=== PATIENT | male | born 1960 ===

== ENCOUNTER 2017-05-07 09:01 | Inpatient (IN) | payer OTHER ==
[~2017-05-07] VITALS: Ht 172.7 cm; Wt 100.0 kg
[2017-05-07 09:12] VITALS: BP 154/89; PULSE 117; RESP 22; TEMP 99.2; O2SAT 97
[2017-05-07] MEDS ORDERED: SODIUM CHLOR 0.9% 1000 ML INJ 1,000 ML IV SCH (09:15)
[2017-05-07] MEDS ORDERED: VANCOMYCIN INJ 1,000 MG in SODIUM CHLOR 0.9% 250 ML INJ 250 ML IV ONE (09:15)
[2017-05-07] MEDS ORDERED: TETANUS/DIPHTHERIA TOXOID ADULT 0.5 ML VIAL IM ONE (09:15)
[2017-05-07 09:16] VITALS: BP 154/89; PULSE 102; RESP 22; TEMP 99.2; O2SAT 97
[2017-05-07] MEDS ORDERED: KETOROLAC TROMETHAMINE 30 MG/ML (IVP) VIAL IV PUSH ONE (09:30)
[2017-05-07] MEDS ORDERED: THIAMINE INJ 100 MG in SODIUM CHLORIDE 0.9% INJ 100 ML IV ONE (09:30)
[2017-05-07 09:35] LABS: AUTOMATED NEUTROPHIL # 32.4 TH/MM3 (1.8-7.7); BASOPHIL # 0.1 TH/MM3 (0-0.2); BASOPHIL % 0.2 % (0.0-2.0); HEMATOCRIT 39.9 % (39.0-51.0); HEMOGLOBIN 13.5 GM/DL (13.0-17.0); LYMPH % 2.4 % (9.0-44.0); LYMPHOCYTE # 0.8 TH/MM3 (1.0-4.8); MEAN CELL VOLUME 90.9 FL (80.0-100.0); MEAN CORPUSCULAR HEMOGLOBIN 30.6 PG (27.0-34.0); MEAN CORPUSCULAR HGB CONC 33.7 % (32.0-36.0); MEAN PLATELET VOLUME 8.7 FL (7.0-11.0); MONO % 5.4 % (0.0-8.0); MONOCYTE # 1.9 TH/MM3 (0-0.9); PLATELET COUNT 210 TH/MM3 (150-450); RED BLOOD COUNT 4.39 MIL/MM3 (4.50-5.90); RED CELL DISTRIBUTION WIDTH 14.8 % (11.6-17.2); WHITE BLOOD COUNT 35.2 TH/MM3 (4.0-11.0)
[2017-05-07 09:52] LABS: ALBUMIN 2.9 GM/DL (3.4-5.0); AST (GOT) 90 U/L (15-37); BICARBONATE 21.6 MEQ/L (21.0-32.0); BLOOD UREA NITROGEN 16 MG/DL (7-18); CALCIUM 9.3 MG/DL (8.5-10.1); CHLORIDE 94 MEQ/L (98-107); CREATININE 1.13 MG/DL (0.60-1.30); GLOMERULAR FILTRATION RATE 67 ML/MIN (>89); GLUCOSE,RANDOM 139 MG/DL (74-106); SODIUM (NA) 128 MEQ/L (136-145)
[2017-05-07 09:53] LABS: ALT (GPT) 28 U/L (12-78)
--- NOTE | 2017-05-07 09:54 | PD ---
HPI Chief Complaint: Laceration/Skin Injury Time Seen by Provider: 09:06 Travel History International Travel<30 days: No Contact w/Intl Traveler<30days: No Traveled to known affect area: No History of Present Illness HPI 56-year-old male complains infected lesions on the left low leg. Patient states that he was in the [place] and got scratched on the skin over the past 2 days. Patient denies any fever chills. Patient states that he is up-to-date with TD booster. Patient states that he has history alcohol abuse. Last drink was yesterday. PFSH Past Medical History Medical History: Denies Significant Hx Blood Disorders: No Cardiovascular Problems: No Endocrine: No Gastrointestinal Disorders: No Genitourinary: No Immune Disorder: No Implanted Vascular Access Dvce: No Musculoskeletal: No Neurologic: No Psychiatric: No Reproductive: No Respiratory: No Tetanus Vaccination: < 5 Years Past Surgical History Surgical History: No Previous Surgery Neurologic Surgery: Yes (pt states " head sx") Social History Alcohol Use: Yes (A FEW DRINKS PER DAY) Tobacco Use: No (QUIT 06/24 3PPD) Substance Use: Yes (coccaine(DENIES)) Allergies-Medications (Allergen,Severity, Reaction): Coded Allergies: No Known Allergies (Unverified , 04/13/17) Reported Meds & Prescriptions Reported Meds & Active Scripts Active No Active Prescriptions or Reported Medications Review of Systems General / Constitutional: No: Fever Eyes: No: Visual changes HENT: No: Headaches Cardiovascular: No: Chest Pain or Discomfort Respiratory: No: Shortness of Breath Gastrointestinal: No: Abdominal Pain Genitourinary: No: Dysuria Musculoskeletal: No: Pain Skin: No Rash Neurologic: No: Weakness Psychiatric: No: Depression Endocrine: No: Polydipsia Hematologic/Lymphatic: No: Easy Bruising Physical Exam Narrative GENERAL: Well-nourished, well-developed patient. SKIN: Focused skin assessment warm/dry. HEAD: Normocephalic. EYES: No scleral icterus. No injection or drainage. NECK: Supple, trachea midline. No JVD or lymphadenopathy. CARDIOVASCULAR: Regular rate and rhythm without murmurs, gallops, or rubs. RESPIRATORY: Breath sounds equal bilaterally. No accessory muscle use. GASTROINTESTINAL: Abdomen soft, non-tender, nondistended. MUSCULOSKELETAL: No cyanosis, or edema. BACK: Nontender without obvious deformity. No CVA tenderness. Patient had multiple abrasions to bilateral lower extremity area with pustular lesions and drainage and abrasions and redness swelling to left lower leg. No induration noted. Data Data Last Documented VS Vital Signs Date Time Temp Pulse Resp B/P (MAP) Pulse Ox O2 Delivery O2 Flow Rate FiO2 05/07/17 09:16 99.2 102 22 154/89 (110) 97 Room Air Orders Orders Complete Blood Count With Diff (05/07/17 09:14) Comprehensive Metabolic Panel (05/07/17 09:14) Blood Culture (05/07/17 09:14) Iv Access Insert/Monitor (05/07/17 09:14) Sodium Chlor 0.9% 1000 Ml Inj (Ns 1000 M (05/07/17 09:15) Vancomycin Inj (Vancomycin Inj) (05/07/17 09:15) Tetanus/Diphtheria Tox Adult (Tetanus/Di (05/07/17 09:15) Ketorolac Inj (Toradol Inj) (05/07/17 09:30) Thiamine Inj (Thiamine Inj) (05/07/17 09:30) Labs Laboratory Tests Test 05/07/17 09:23 White Blood Count 35.2 TH/MM3 Red Blood Count 4.39 MIL/MM3 Hemoglobin 13.5 GM/DL Hematocrit 39.9 % Mean Corpuscular Volume 90.9 FL Mean Corpuscular Hemoglobin 30.6 PG Mean Corpuscular Hemoglobin Concent 33.7 % Red Cell Distribution Width 14.8 % Platelet Count 210 TH/MM3 Mean Platelet Volume 8.7 FL Neutrophils (%) (Auto) 92.0 % Lymphocytes (%) (Auto) 2.4 % Monocytes (%) (Auto) 5.4 % Eosinophils (%) (Auto) 0.0 % Basophils (%) (Auto) 0.2 % Neutrophils # (Auto) 32.4 TH/MM3 Lymphocytes # (Auto) 0.8 TH/MM3 Monocytes # (Auto) 1.9 TH/MM3 Eosinophils # (Auto) 0.0 TH/MM3 Basophils # (Auto) 0.1 TH/MM3 CBC Comment AUTO DIFF Differential Total Cells Counted 100 Neutrophils % (Manual) 84 % Band Neutrophils % 9 % Lymphocytes % 4 % Monocytes % 2 % Basophils % 1 % Neutrophils # (Manual) 32.7 TH/MM3 Differential Comment FINAL DIFF MANUAL Atypical Lymphocytes % Platelet Estimate NORMAL Platelet Morphology Comment NORMAL Blood Urea Nitrogen 16 MG/DL Creatinine 1.13 MG/DL Random Glucose 139 MG/DL Total Protein 8.9 GM/DL Albumin 2.9 GM/DL Calcium Level 9.3 MG/DL Alkaline Phosphatase 126 U/L Aspartate Amino Transf (AST/SGOT) 90 U/L Alanine Aminotransferase (ALT/SGPT) 28 U/L Total Bilirubin 5.3 MG/DL Sodium Level 128 MEQ/L Potassium Level 3.3 MEQ/L Chloride Level 94 MEQ/L Carbon Dioxide Level 21.6 MEQ/L Anion Gap 12 MEQ/L Estimat Glomerular Filtration Rate 67 ML/MIN MDM Medical Decision Making Medical Screen Exam Complete: Yes Emergency Medical Condition: Yes Medical Record Reviewed: Yes Interpretation(s) 10:24 AM. CBC WBC 35.2. 84 neutrophil. 9 bands. Sodium 128. Potassium 3.3. Chloride 94. GFR 67. Glucose 139. AST 19. Alkaline phosphatase 126. Differential Diagnosis Differential diagnosis including cellulitis, abscess, DVT. Narrative Course 56-year-old male with infected lesions left lower leg. History of EtOH abuse. Normal saline solution 1 25 cc an hour. Thiamine 100 mg IV. Vancomycin 1 g IV. Toradol 30 mg IV. Diagnosis Primary Impression: Left leg cellulitis Additional Impressions: History of alcohol abuse Hyponatremia Hypokalemia Scripts No Active Prescriptions or Reported Meds Fredy Waldrop MD May 07, 2017 09:54
[2017-05-07 09:55] LABS: ALKALINE PHOSPHATASE 126 U/L (45-117); TOTAL BILIRUBIN ADULT 5.3 MG/DL (0.2-1.0); TOTAL PROTEIN 8.9 GM/DL (6.4-8.2)
[2017-05-07 10:20] LABS: BANDS 9 % (0-6); BASOPHILS 1 % (0-2); LYMPHOCYTES 4 % (9-44); MONOCYTES 2 % (0-8); NEUTROPHIL # MANUAL DIFF 32.7 TH/MM3 (1.8-7.7); POLYS (SEG NEUTROPHILS) 84 % (16-70)
[2017-05-07] MEDS ORDERED: POTASSIUM CHLORIDE 20 MEQ CONTROLLED RELEASE TAB PO ONE (10:30)
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
[2017-05-07] MEDS ORDERED: LORazepam 2 MG TAB PO PRN (13:00)
[2017-05-07] MEDS ORDERED: LORazepam 1 MG TAB PO PRN (13:00)
[2017-05-07] MEDS ORDERED: Vancomycin Consult Pharmacy 1 EA OTHER SCH (13:00)
[2017-05-07] MEDS ORDERED: HALOPERIDOL LACTATE 5 MG/ML AMP IM PRN (13:00)
[2017-05-07] MEDS ORDERED: FLUMAZENIL 0.5 MG/5 ML VIAL IV PUSH PRN (13:00)
[2017-05-07] MEDS ORDERED: VANCOMYCIN INJ 2,000 MG in SODIUM CHLOR 0.9% 250 ML INJ 250 ML IV SCH ×2 (13:00→22:00)
[2017-05-07] MEDS ORDERED: LORazepam 2 MG/ML VIAL IV PUSH PRN ×4 (13:00)
[2017-05-07 13:30] VITALS: BP 117/79; PULSE 81; RESP 17; TEMP 97.6; O2SAT 100
[2017-05-07] MEDS ORDERED: SODIUM CHLOR 0.9% 1000 ML INJ 1,000 ML IV ONE (13:45)
[2017-05-07] MEDS ORDERED: ENOXAPARIN SODIUM 40 MG/0.4 ML SYRINGE SQ SCH (14:00)
[2017-05-07 16:00] VITALS: BP 117/79; PULSE 81; RESP 17; TEMP 97.6; O2SAT 100
[2017-05-07] MEDS: PIPERACIL-TAZO 3.375 GM PREMIX 50 ML IV SCH ×2 (16:02→22:25)
[2017-05-07] MEDS: SODIUM CHLOR 0.9% 1000 ML INJ 1,000 ML IV SCH ×2 (16:02→22:24)
--- NOTE | 2017-05-07 16:39 | PD.WCN.NOT ---
Wound Consult Description: Received consult for evaluation of wound management of L lower extremity from Doctor Columba Boyle MD R1 Communicated with: JAM Nguyễn and Call placed to Doctor Columba Boyle MD R1 Recommendation: Please cleanse diffuse wounds to L lower extremity with wound cleanser and pat dry. Cover draining wounds with Maxorb extra AG and ABD pad, secure with rollled gauze and tape. May leave dry partial thickness wounds open to air. Change dressing every other day or PRN if saturated or dislodged. Please consult infectious disease Doctor and recommend imaging of L lower extremity. Additional Information: Patient seen on for evaluation of wound management of L lower leg. Bilateral legs are noted open to air. L lower leg noted with non pitting edema, Skin is hot to touch . L lower extremity is noted with erythema and tenderness from the foot to the knee. Diffuse partial thickness wounds are noted to entire L leg.Blood filled blister and pustules are also seen on L lower extremity. L lower anterior garcia is noted with full thickness wound that measures ~8cm x ~ 10cm. Induration is noted to periwound from 4 to 12 o'clock. Moderate escobar/ sanguinous drainage is noted with foul odor. Wound margins are jagged, unattached and slightly macerated.Wound bed presents with ~20% pink tissue ,~20 % dark red tissue and ~60% yellow shiny tissue.Cleansed all wounds with wound cleanser and covered draining wound to L lower anterior garcia with Maxorb extra AG and covered with ABD pad. Secured dressing with rolled gauze and tape.Covered draining partial thickness wounds with an ABD pad and secured with rolled gauze and tape. Lizbeth Oliva [facility] May 07, 2017 16:39
[2017-05-07] MEDS ORDERED: IOHEXOL 350 MG/ML 10 ML VIAL (for RAD DIAG) IVCONTRAST ONE (18:52)
--- NOTE | 2017-05-07 19:13 | RADRPT ---
EXAM DATE/TIME: 05/07/2017 18:40 [facility] COMPARISON: No previous studies available for comparison. INDICATIONS : Left leg cellulitis; rule out abscess. IV CONTRAST: 75 cc Omnipaque 350 (iohexol) IV RADIATION DOSE: 7.29 CTDIvol (mGy) MEDICAL HISTORY : cocaine abuse SURGICAL HISTORY : Craniotomy. ENCOUNTER: Initial ACUITY: 3 days PAIN SCALE: 6/10 LOCATION: Left lower extremity TECHNIQUE: Volumetric scanning of the foot was performed. Using automated exposure control and adjustment of th e mA and/or kV according to patient size, radiation dose was kept as low as reasonably achievable to obtain optimal diagnostic quality images. DICOM format image data is available electronically for re view and comparison. FINDINGS: No acute bony abnormalities. Extensive subcutaneous edema in the distal leg and foot characteristic o f cellulitis. No discrete or drainable fluid collections to suggest abscess. No evidence for osteomye litis on CT. CONCLUSION: 1. Cellulitis of the distal leg and foot especially in the dorsum of the foot. No discrete abscess or CT findings of osteomyelitis. Abdiaziz Guaman MD on May 07, 2017 at 19:09 Board Certified Radiologist. This report was verified electronically.
[2017-05-07 20:00] VITALS: BP 116/69; PULSE 97; RESP 18; TEMP 99.8; O2SAT 93
[2017-05-07] MEDS ORDERED: VANCOMYCIN INJ 2,000 MG in SODIUM CHLORID 0.9% 500 ML INJ 500 ML IV SCH (22:00)
[2017-05-08 00:23] VITALS: BP 114/72; PULSE 84; RESP 18; TEMP 98.7; O2SAT 98
[2017-05-08] MEDS: PIPERACIL-TAZO 3.375 GM PREMIX 50 ML IV SCH ×4 (03:29→20:26)
[2017-05-08 06:55] LABS: AUTOMATED NEUTROPHIL # 19.4 TH/MM3 (1.8-7.7); BASOPHIL % 0.1 % (0.0-2.0); EOSINOPHIL % 0.1 % (0.0-4.0); HEMATOCRIT 35.1 % (39.0-51.0); HEMOGLOBIN 11.8 GM/DL (13.0-17.0); LYMPH % 3.9 % (9.0-44.0); LYMPHOCYTE # 0.9 TH/MM3 (1.0-4.8); MEAN CELL VOLUME 90.4 FL (80.0-100.0); MEAN CORPUSCULAR HEMOGLOBIN 30.4 PG (27.0-34.0); MEAN CORPUSCULAR HGB CONC 33.7 % (32.0-36.0); MEAN PLATELET VOLUME 8.8 FL (7.0-11.0); MONO % 7.8 % (0.0-8.0); MONOCYTE # 1.7 TH/MM3 (0-0.9); NEUT % 88.1 % (16.0-70.0); PLATELET COUNT 164 TH/MM3 (150-450); RED BLOOD COUNT 3.88 MIL/MM3 (4.50-5.90); RED CELL DISTRIBUTION WIDTH 14.7 % (11.6-17.2); WHITE BLOOD COUNT 22.1 TH/MM3 (4.0-11.0)
[2017-05-08 07:11] LABS: ALKALINE PHOSPHATASE 95 U/L (45-117); ALT (GPT) 18 U/L (12-78); AST (GOT) 53 U/L (15-37); BICARBONATE 20.3 MEQ/L (21.0-32.0); BLOOD UREA NITROGEN 37 MG/DL (7-18); CALCIUM 7.9 MG/DL (8.5-10.1); CHLORIDE 99 MEQ/L (98-107); CREATININE 3.12 MG/DL (0.60-1.30); GLOMERULAR FILTRATION RATE 21 ML/MIN (>89); GLUCOSE,RANDOM 120 MG/DL (74-106); SODIUM (NA) 131 MEQ/L (136-145); TOTAL BILIRUBIN ADULT 3.5 MG/DL (0.2-1.0); TOTAL PROTEIN 6.5 GM/DL (6.4-8.2)
[2017-05-08 08:00] VITALS: BP 101/66; PULSE 83; RESP 18; TEMP 100; O2SAT 95
[2017-05-08] MEDS ORDERED: POTASSIUM CHLORIDE 20 MEQ CONTROLLED RELEASE TAB PO ONE (08:15)
[2017-05-08] MEDS ORDERED: Vancomycin Consult Pharmacy 1 EA OTHER SCH (08:30)
[2017-05-08] MEDS: FOLIC ACID 1 MG TAB PO SCH (08:42)
[2017-05-08] MEDS: THIAMINE HCL 100 MG TAB PO SCH (08:42)
[2017-05-08] MEDS: MULTIVITAMINS/MINERALS THERAPEUTIC TAB PO SCH (08:43)
[2017-05-08] MEDS: HEPARIN SODIUM - SQ 10,000 UNITS/ML VIAL SQ SCH ×2 (08:45→20:26)
[2017-05-08] MEDS ORDERED: ACETAMINOPHEN/HYDROcodone 325 MG/5 MG TAB PO PRN (09:15)
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
--- NOTE | 2017-05-08 10:17 | RADRPT ---
EXAM DATE/TIME: 05/08/2017 09:47 [place] COMPARISON: No previous studies available for comparison. INDICATIONS : Increased BUN/Creatnine. MEDICAL HISTORY : Alcohol use. SURGICAL HISTORY : Head surgery. ENCOUNTER: Initial ACUITY: 1 day PAIN SCORE: 0/10 LOCATION: Bilateral flank MEASUREMENTS: RIGHT KIDNEY: 12.7 x 5.6 x 5.7 cm LEFT KIDNEY: 11.9 x 4.5 x 6.4 cm FINDINGS: RIGHT KIDNEY: There is increased echogenicity of the kidney. Renal cortex is normal in thickness. No hydronephrosi s, stone, or mass. LEFT KIDNEY: There is increased echogenicity of the kidney. Renal cortex is normal in thickness. No hydronephrosi s, stone, or mass. BLADDER: Within normal limits given the degree of distension. CONCLUSION: Echogenic kidneys raising the possibility of medical renal disease. Clinical correlat ion is recommended. No hydronephrosis or solid renal mass. Unremarkable urinary bladder. Be Branch MD on May 08, 2017 at 10:13 Board Certified Radiologist. This report was verified electronically.
[2017-05-08 10:25] LABS: BANDS 17 % (0-6); LYMPHOCYTES 5 % (9-44); MONOCYTES 7 % (0-8); NEUTROPHIL # MANUAL DIFF 19.4 TH/MM3 (1.8-7.7); POLYS (SEG NEUTROPHILS) 71 % (16-70)
[2017-05-08 12:00] VITALS: BP 101/64; PULSE 81; RESP 17; TEMP 98; O2SAT 97
[2017-05-08] MEDS: ACETAMINOPHEN/HYDROcodone 325 MG/10 MG TAB PO PRN ×2 (15:01→18:29)
[2017-05-08 16:00] VITALS: BP 116/70; PULSE 87; RESP 17; TEMP 99.2; O2SAT 96
[2017-05-08] MEDS: SODIUM CHLOR 0.9% 1000 ML INJ 1,000 ML IV SCH ×2 (17:24→20:26)
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
[2017-05-08] MEDS: CLINDAMYCIN INJ 600 MG in SODIUM CHLORIDE 0.9% INJ 100 ML IV SCH (18:29)
[2017-05-08 20:00] VITALS: BP 94/66; PULSE 81; RESP 22; TEMP 96.2; O2SAT 96
[2017-05-08 23:36] LABS: BICARBONATE 19.9 MEQ/L (21.0-32.0); CALCIUM 7.7 MG/DL (8.5-10.1); CREATININE 3.05 MG/DL (0.60-1.30)
[2017-05-09] VITALS: BP 91/57; PULSE 75; RESP 20; TEMP 97.4; O2SAT 96
[2017-05-09] MEDS: CLINDAMYCIN INJ 600 MG in SODIUM CHLORIDE 0.9% INJ 100 ML IV SCH ×2 (00:52→08:12)
[2017-05-09] MEDS: SODIUM CHLOR 0.9% 1000 ML INJ 1,000 ML IV SCH ×3 (00:52→20:25)
[2017-05-09 06:36] LABS: AUTOMATED NEUTROPHIL # 11.7 TH/MM3 (1.8-7.7); BASOPHIL # 0.1 TH/MM3 (0-0.2); BASOPHIL % 0.4 % (0.0-2.0); EOSINOPHIL # 0.2 TH/MM3 (0-0.4); EOSINOPHIL % 1.2 % (0.0-4.0); HEMATOCRIT 32.6 % (39.0-51.0); HEMOGLOBIN 10.8 GM/DL (13.0-17.0); LYMPHOCYTE # 0.8 TH/MM3 (1.0-4.8); MEAN CELL VOLUME 90.9 FL (80.0-100.0); MEAN CORPUSCULAR HEMOGLOBIN 30.2 PG (27.0-34.0); MEAN CORPUSCULAR HGB CONC 33.2 % (32.0-36.0); MEAN PLATELET VOLUME 8.7 FL (7.0-11.0); MONO % 8.9 % (0.0-8.0); MONOCYTE # 1.3 TH/MM3 (0-0.9); NEUT % 83.5 % (16.0-70.0); PLATELET COUNT 166 TH/MM3 (150-450); RED BLOOD COUNT 3.59 MIL/MM3 (4.50-5.90); RED CELL DISTRIBUTION WIDTH 14.7 % (11.6-17.2)
[2017-05-09 07:12] LABS: ALBUMIN 1.8 GM/DL (3.4-5.0); BICARBONATE 20.4 MEQ/L (21.0-32.0); CALCIUM 7.4 MG/DL (8.5-10.1); CALCIUM-PROTEIN CORRECTED 7.9 MG/DL (8.5-10.1); CREATININE 2.82 MG/DL (0.60-1.30); TOTAL BILIRUBIN ADULT 2.7 MG/DL (0.2-1.0); TOTAL PROTEIN 6.2 GM/DL (6.4-8.2)
[2017-05-09 08:00] VITALS: BP 99/68; PULSE 85; RESP 16; TEMP 98.6; O2SAT 97
[2017-05-09] MEDS: HEPARIN SODIUM - SQ 10,000 UNITS/ML VIAL SQ SCH ×2 (08:08→20:24)
[2017-05-09] MEDS: FOLIC ACID 1 MG TAB PO SCH (08:08)
[2017-05-09] MEDS: ACETAMINOPHEN/HYDROcodone 325 MG/10 MG TAB PO PRN ×3 (08:08→20:24)
[2017-05-09] MEDS: MULTIVITAMINS/MINERALS THERAPEUTIC TAB PO SCH (08:08)
[2017-05-09] MEDS: THIAMINE HCL 100 MG TAB PO SCH (08:08)
--- NOTE | 2017-05-09 10:09 | HHI.FPPN ---
Subjective Remarks No acute events overnight. Tmax 100.0 past 24 hours. BPs ranging 90s-100s/50- 70s. Patient states his pain overall is at a 5/10. Denies fevers/chills, CP, SOB , cough. He otherwise does not have any complaints this morning. He states his pain has improved since admission along with some ROM of the let lower extremity but is still significantly limited. (Mike Sinclair MD R2) Objective Vitals Vital Signs Date Time Temp Pulse Resp B/P (MAP) Pulse Ox O2 Delivery O2 Flow Rate FiO2 05/09/17 08:00 98.6 85 16 99/68 (78) 97 05/09/17 00:00 97.4 75 20 91/57 (68) 96 05/08/17 20:00 96.2 81 22 94/66 (75) 96 05/08/17 16:00 99.2 87 17 116/70 (85) 96 05/08/17 12:00 98.0 81 17 101/64 (76) 97 I/O 05/08/17 05/08/17 05/08/17 05/09/17 05/09/17 05/09/17 07:00 15:00 23:00 07:00 15:00 23:00 Intake Total 940 ml 50 ml 2859 ml 584 ml Output Total 300 ml 975 ml 1225 ml Balance 640 ml 50 ml 1884 ml -641 ml Intake Oral 1280 ml 480 ml IV Total 940 ml 50 ml 1579 ml 104 ml Output Urine Total 300 ml 975 ml 1225 ml # Bowel Movements 1 0 (Mike Sinclair MD R2) Result Diagram: 05/09/17 0605/09/17 06 Objective Remarks GENERAL: This is a disheveled, tired appearing male w/poor hygiene reclining in bed in no acute distress. SKIN: Tanned and dry. Numerous abrasions on the bilateral lower extremities from the knee down. On the left lower leg, there is a large 3 inch ulceration with a yellow center draining pus. There is a 1cm border of skin surrounding the ulceration that appears white. The left lower leg appears swollen and erythematous, especially at the left ankle. There is a small, firm pocket of what appears to be fluid in the anterior garcia. No palpable abscess. HEAD: Atraumatic. Normocephalic. EYES: EOMI. No scleral icterus. No injection or drainage. ENT: Moist mucous membranes. NECK: Trachea midline. Supple. CARDIOVASCULAR: Regular rate and rhythm without murmurs, gallops, or rubs. Cap refill about 2 seconds. Peripheral pulses 2+. RESPIRATORY: Coarse lung sounds on expiration. Breath sounds equal bilaterally. GASTROINTESTINAL: Abdomen soft, non-tender, nondistended. MUSCULOSKELETAL: No swelling of the right lower extremity. Dorsalis pedis pulses intact. Able to move toes of the left lower foot. Not able to flex the ankle because of pain, significant swelling and erythema of the ankle noted. NEUROLOGICAL: Awake and alert. No focal deficits, normal speech. (Mike Sinclair MD R2) A/P Assessment and Plan Patient is a 56-year-old male with a history of alcohol abuse presented with sepsis due to left lower extremity cellulitis and abscess. (Mike Sinclair MD R2) Attending Attestation Patient seen and examined. Case reviewed and discussed with the resident team. Agree with plan of care as discussed with me and documented in the resident note. he feels greatly improved and is doing well clinically. His wounds were fortunately all superficial. his renal fxn is improving. discussed with him that getting an apartment could help prevent infections as he could bathe more often that every 2-3 weeks and hopefully avoid the extensive minor trauma to his body. (Mónica Peacock MD) Problem List: (1) Left leg cellulitis ICD Codes: L03.116 - Cellulitis of left lower limb Status: Acute Plan: WBC trending down, continue to monitor - Vancomycin discontinued due to elevated Cr - ID consulted, started patient on IV Clindamycin - Zosyn discontinued - Wound cx with heavy growth staph aureus, heavy growth group A beta strep - Wound/ostomy consult - CT w/contrast of left leg demonstrating cellulitis of the distal leg and foot especially in the dorsum of the foot. No discrete abscess or CT findings of osteomyelitis. - Continue maintenance IVF - May consider orthopedic consult (2) Leukocytosis ICD Codes: D72.829 - Leukocytosis Status: Acute Plan: Continue to monitor Treatment plan as above (3) History of alcohol abuse ICD Codes: Z87.898 - Personal history of other specified conditions Status: Chronic Plan: [facility] protocol PO rally pack Symptoms stable (4) Hypokalemia ICD Codes: E87.6 - Hypokalemia Status: Acute Plan: Continue to monitor and replete orally as needed (5) Hyponatremia ICD Codes: E87.1 - Hypo-osmolality and hyponatremia Status: Resolved Plan: Resolved Continue to monitor (6) FEN Plan: Fluids: NS at maintenance rate Electrolytes: continue to monitor Nutrition: Regular diet DVT prophylaxis: Heparin 5000 units sq q12h (Mike Sinclair MD R2) Problem Qualifiers (1) Leukocytosis: Qualified Codes: D72.825 - Bandemia Mike Sinclair MD R2 May 09, 2017 10:09 Mónica Peacock MD May 09, 2017 13:21
[2017-05-09] MEDS ORDERED: POTASSIUM CHLORIDE 10 MEQ CONTROLLED RELEASE TAB PO ONE (10:15)
[2017-05-09 12:00] VITALS: BP 109/72; PULSE 83; RESP 18; TEMP 98.6; O2SAT 97
--- NOTE | 2017-05-09 13:24 | HHI.IDPN ---
Note Infectious Disease Note Patient notes sharp pain in the left leg. Awake and alert. No distress. Presented to the emergency department with lacerated wounds on his lower extremities. PAST MEDICAL HISTORY The patient denies significant history. ALLERGIES NO KNOWN DRUG ALLERGIES. ANTIBIOTICS: Clindamycin. SOCIAL HISTORY Positive alcohol use. The patient smokes one or two cigarettes a week. He denies illicit drugs. OBJECTIVE: Vital Signs Date Time Temp Pulse Resp B/P (MAP) Pulse Ox O2 Delivery O2 Flow Rate FiO2 05/09/17 12:00 98.6 83 18 109/72 (84) 97 05/09/17 08:00 98.6 85 16 99/68 (78) 97 05/09/17 00:00 97.4 75 20 91/57 (68) 96 05/08/17 20:00 96.2 81 22 94/66 (75) 96 05/08/17 16:00 99.2 87 17 116/70 (85) 96 Laboratory Tests Test 05/08/17 06:20 05/09/17 06:05 White Blood Count 22.1 TH/MM3 14.0 TH/MM3 Red Blood Count 3.88 MIL/MM3 3.59 MIL/MM3 Hemoglobin 11.8 GM/DL 10.8 GM/DL Hematocrit 35.1 % 32.6 % Mean Corpuscular Volume 90.4 FL 90.9 FL Mean Corpuscular Hemoglobin 30.4 PG 30.2 PG Mean Corpuscular Hemoglobin Concent 33.7 % 33.2 % Red Cell Distribution Width 14.7 % 14.7 % Platelet Count 164 TH/MM3 166 TH/MM3 Mean Platelet Volume 8.8 FL 8.7 FL Neutrophils (%) (Auto) 88.1 % 83.5 % Lymphocytes (%) (Auto) 3.9 % 6.0 % Monocytes (%) (Auto) 7.8 % 8.9 % Eosinophils (%) (Auto) 0.1 % 1.2 % Basophils (%) (Auto) 0.1 % 0.4 % Neutrophils # (Auto) 19.4 TH/MM3 11.7 TH/MM3 Lymphocytes # (Auto) 0.9 TH/MM3 0.8 TH/MM3 Monocytes # (Auto) 1.7 TH/MM3 1.3 TH/MM3 Eosinophils # (Auto) 0.0 TH/MM3 0.2 TH/MM3 Basophils # (Auto) 0.0 TH/MM3 0.1 TH/MM3 CBC Comment AUTO DIFF DIFF FINAL Differential Total Cells Counted 100 Neutrophils % (Manual) 71 % Band Neutrophils % 17 % Lymphocytes % 5 % Monocytes % 7 % Neutrophils # (Manual) 19.4 TH/MM3 Differential Comment FINAL DIFF MANUAL Platelet Estimate NORMAL Platelet Morphology Comment NORMAL Red Cell Morphology Comment NORMAL Laboratory Tests Test 05/08/17 06:20 05/08/17 22:10 05/09/17 06:05 Blood Urea Nitrogen 37 MG/DL 40 MG/DL 41 MG/DL Creatinine 3.12 MG/DL 3.05 MG/DL 2.82 MG/DL Random Glucose 120 MG/DL 113 MG/DL 96 MG/DL Total Protein 6.5 GM/DL 6.2 GM/DL Albumin 2.0 GM/DL 1.8 GM/DL Calcium Level 7.9 MG/DL 7.7 MG/DL 7.4 MG/DL Alkaline Phosphatase 95 U/L 267 U/L Aspartate Amino Transf (AST/SGOT) 53 U/L 38 U/L Alanine Aminotransferase (ALT/SGPT) 18 U/L 16 U/L Total Bilirubin 3.5 MG/DL 2.7 MG/DL Sodium Level 131 MEQ/L 133 MEQ/L 136 MEQ/L Potassium Level 3.4 MEQ/L 3.3 MEQ/L 3.2 MEQ/L Chloride Level 99 MEQ/L 102 MEQ/L 106 MEQ/L Carbon Dioxide Level 20.3 MEQ/L 19.9 MEQ/L 20.4 MEQ/L Anion Gap 12 MEQ/L 11 MEQ/L 10 MEQ/L Estimat Glomerular Filtration Rate 21 ML/MIN 21 ML/MIN 23 ML/MIN Protein Corrected Calcium 7.9 MG/DL Microbiology Date/Time Source Procedure Growth Status 05/07/17 09:23 Blood Peripheral Aerobic Blood Culture - Preliminary NO GROWTH IN 2 DAYS Resulted 05/07/17 09:23 Blood Peripheral Anaerobic Blood Culture - Preliminary NO GROWTH IN 2 DAYS Resulted 05/07/17 09:23 Blood Peripheral Aerobic Blood Culture - Preliminary NO GROWTH IN 2 DAYS Resulted 05/07/17 09:23 Blood Peripheral Anaerobic Blood Culture - Preliminary NO GROWTH IN 2 DAYS Resulted 05/07/17 14:10 Wound Leg Gram Stain - Final Complete 05/07/17 14:10 Wound Culture - Final Staphylococcus Aureus Group A Beta Strep Complete IMAGING: Renal Ultrasound 05/08/17 0000 Signed Impressions: Service Date/Time: Monday, May 08, 2017 09:47 - CONCLUSION: Echogenic kidneys raising the possibility of medical renal disease. Clinical correlation is recommended. No hydronephrosis or solid renal mass. Unremarkable urinary bladder. Be Branch MD Lower Extremity CT 05/07/17 0000 Signed Impressions: Service Date/Time: Sunday, May 07, 2017 18:40 - CONCLUSION: 1. Cellulitis of the distal leg and foot especially in the dorsum of the foot. No discrete abscess or CT findings of osteomyelitis. Abdiaziz Guaman MD PHYSICAL EXAMINATION GENERAL: No acute distress. HEENT: Head is atraumatic. Extraocular movements grossly intact, pupils reactive to light without icterus. Oropharynx moist mucosa without lesions. NECK: Supple without adenopathy or swelling. LUNGS: Clear to auscultation. HEART: Regular S1, S2 without murmurs, rubs or gallops. ABDOMEN: Bowel sounds present, soft, nontender. EXTREMITIES: The left leg is erythematous from above the knee down to the dorsum of the foot. There is an ulcerated lesion with shaggy appearing crater which has visible subdermal tissue and there is pale discoloration at the site of that ulceration. The entire left leg is swollen and very warm and the dorsum of the foot has 3+ edema. The patient has several shallow ulcerated clean based areas with weeping of serous fluid. The right foot has an ulcer at the dorsum. SKIN: The patient has a bronze hue to the skin. NEURO: No gross focal findings. PSYCHIATRIC: The patient is calm and cooperative. IMPRESSION 1. Severe cellulitis of the left leg with ulcerative component at the left distal tibia. Culture showing staph aureus and group A beta strep. Staph (r) to clinda. 2. Leukocytosis secondary to infection. RECOMMENDATIONS 1. Stop clindamycin. 2. Start Ancef adjusted for renal function. 3. Avoid vancomycin and other nephrotoxic medications. 4. Consider orthopedic consultation if the area of the distal tibia does not improve. The patient may need to have debridement performed by orthopedics or podiatry physician. Wan Bianchi MD May 09, 2017 13:24
[2017-05-09 16:00] VITALS: BP 109/72; PULSE 80; RESP 18; TEMP 96.4; O2SAT 98
[2017-05-09 20:22] VITALS: BP 120/74; PULSE 78; RESP 18; TEMP 97.4; O2SAT 97
[2017-05-09] MEDS: CLOTRIMAZOLE 1% CREAM 15 GM TOPICAL SCH (20:25)
[2017-05-09 23:51] VITALS: BP 127/76; PULSE 87; RESP 18; TEMP 99; O2SAT 96
[2017-05-10] MEDS: SODIUM CHLOR 0.9% 1000 ML INJ 1,000 ML IV SCH ×4 (00:31→22:13)
[2017-05-10 06:53] LABS: AUTOMATED NEUTROPHIL # 9.8 TH/MM3 (1.8-7.7); BASOPHIL # 0.1 TH/MM3 (0-0.2); BASOPHIL % 0.5 % (0.0-2.0); EOSINOPHIL # 0.2 TH/MM3 (0-0.4); EOSINOPHIL % 1.6 % (0.0-4.0); HEMATOCRIT 32.9 % (39.0-51.0); HEMOGLOBIN 10.9 GM/DL (13.0-17.0); LYMPH % 10.6 % (9.0-44.0); LYMPHOCYTE # 1.3 TH/MM3 (1.0-4.8); MEAN CELL VOLUME 90.5 FL (80.0-100.0); MEAN CORPUSCULAR HEMOGLOBIN 30.1 PG (27.0-34.0); MEAN CORPUSCULAR HGB CONC 33.2 % (32.0-36.0); MEAN PLATELET VOLUME 8.3 FL (7.0-11.0); MONO % 10.4 % (0.0-8.0); MONOCYTE # 1.3 TH/MM3 (0-0.9); NEUT % 76.9 % (16.0-70.0); PLATELET COUNT 194 TH/MM3 (150-450); RED BLOOD COUNT 3.64 MIL/MM3 (4.50-5.90); RED CELL DISTRIBUTION WIDTH 14.9 % (11.6-17.2); WHITE BLOOD COUNT 12.7 TH/MM3 (4.0-11.0)
[2017-05-10 07:20] LABS: ALBUMIN 1.8 GM/DL (3.4-5.0); ALT (GPT) 15 U/L (12-78); AST (GOT) 25 U/L (15-37); BICARBONATE 19.6 MEQ/L (21.0-32.0); BLOOD UREA NITROGEN 27 MG/DL (7-18); CALCIUM 8.1 MG/DL (8.5-10.1); CHLORIDE 106 MEQ/L (98-107); CREATININE 2.06 MG/DL (0.60-1.30); GLOMERULAR FILTRATION RATE 33 ML/MIN (>89); GLUCOSE,RANDOM 97 MG/DL (74-106); MAGNESIUM 1.8 MG/DL (1.5-2.5); SODIUM (NA) 135 MEQ/L (136-145)
[2017-05-10 07:25] LABS: ALKALINE PHOSPHATASE 101 U/L (45-117); TOTAL BILIRUBIN ADULT 2.1 MG/DL (0.2-1.0); TOTAL PROTEIN 6.4 GM/DL (6.4-8.2)
[2017-05-10 08:00] VITALS: BP_SYST 108; BP_SYST 138; BP_DIAS 61; PULSE 77; PULSE 91; RESP 17; RESP 19; TEMP 98.9; TEMP 99; O2SAT 95; O2SAT 96
[2017-05-10] MEDS: HEPARIN SODIUM - SQ 10,000 UNITS/ML VIAL SQ SCH ×2 (08:49→21:24)
[2017-05-10] MEDS: THIAMINE HCL 100 MG TAB PO SCH (08:49)
[2017-05-10] MEDS: FOLIC ACID 1 MG TAB PO SCH (08:50)
[2017-05-10] MEDS: ACETAMINOPHEN/HYDROcodone 325 MG/10 MG TAB PO PRN ×2 (08:50→14:30)
[2017-05-10] MEDS: CLOTRIMAZOLE 1% CREAM 15 GM TOPICAL SCH ×2 (08:50→21:25)
[2017-05-10] MEDS: MULTIVITAMINS/MINERALS THERAPEUTIC TAB PO SCH (08:50)
[2017-05-10] MEDS ORDERED: POTASSIUM CHLORIDE 20 MEQ CONTROLLED RELEASE TAB PO ONE ×3 (09:00→21:00)
--- NOTE | 2017-05-10 10:24 | HHI.FPPN ---
Subjective Remarks Mr Momin is improved today. His wounds are healing beautifully. He still has erythema and edema of his left ankle and has some bleeding from his wounds when he stands up to walk. He is homeless. He will be getting a check from the on the first of the month. He plans on staying in a hotel after the first. Objective Vitals Vital Signs Date Time Temp Pulse Resp B/P (MAP) Pulse Ox O2 Delivery O2 Flow Rate FiO2 05/10/17 08:00 98.9 77 17 108/61 (77) 96 05/09/17 23:51 99.0 87 18 127/76 (93) 96 05/09/17 20:22 97.4 78 18 120/74 (89) 97 05/09/17 16:00 96.4 80 18 109/72 (84) 98 05/09/17 12:00 98.6 83 18 109/72 (84) 97 I/O 05/09/17 05/09/17 05/09/17 05/10/17 05/10/17 05/10/17 07:00 15:00 23:00 07:00 15:00 23:00 Intake Total 584 ml 100 ml 1200 ml 1710 ml 120 ml Output Total 1225 ml 1500 ml 1650 ml 1800 ml Balance -641 ml -1400 ml -450 ml -90 ml 120 ml Intake Oral 480 ml 600 ml 760 ml 120 ml IV Total 104 ml 100 ml 600 ml 950 ml Output Urine Total 1225 ml 1500 ml 1650 ml 1800 ml # Voids 6 # Bowel Movements 0 0 1 Result Diagram: 05/10/1762505/10/17625 Objective Remarks GENERAL: This is a pleasant male reclining in bed in no acute distress. SKIN: Tanned and dry. Numerous abrasions on the bilateral lower extremities from the knee down much improved from admission. On the left lower leg, there was a large 3 inch ulceration with a yellow center draining pus. There was a 1cm border of skin surrounding the ulceration that appeared white. The left lower leg appears swollen and erythematous, especially at the left ankle. He still has erythema, edema and warmth. No palpable abscess. HEAD: Atraumatic. Normocephalic. EYES: EOMI. No scleral icterus. No injection or drainage. ENT: Moist mucous membranes. NECK: Trachea midline. Supple. CARDIOVASCULAR: Regular rate and rhythm without murmurs, gallops, or rubs. Cap refill about 2 seconds. Peripheral pulses 2+. RESPIRATORY: clear. Breath sounds equal bilaterally. GASTROINTESTINAL: Abdomen soft, non-tender, nondistended. MUSCULOSKELETAL: No swelling of the right lower extremity. Dorsalis pedis pulses intact. Able to move toes of the left lower foot. Not able to flex the ankle completely because of pain, significant swelling and erythema of the ankle noted. NEUROLOGICAL: Awake and alert. No focal deficits, normal speech. Urinary Catheter: No Vascular Central Line Catheter: No A/P Assessment and Plan Patient is a 56-year-old male with a history of alcohol abuse presented with sepsis due to left lower extremity cellulitis and abscess. Problem List: (1) Left leg cellulitis ICD Codes: L03.116 - Cellulitis of left lower limb Status: Acute Plan: WBC trending down, continue to monitor - Vancomycin discontinued due to elevated Cr - ID consulted, started patient on IV Clindamycin, now on ancef. will see what is recommended at D/C po because he continues to improve and may be ready for discharge tomorrow or the next day - Zosyn discontinued - Wound cx with heavy growth staph aureus not MRSA, heavy growth group A beta strep - Wound/ostomy consulted - CT w/contrast of left leg demonstrating cellulitis of the distal leg and foot especially in the dorsum of the foot. No discrete abscess or CT findings of osteomyelitis. - Continue maintenance IVF (2) Hypokalemia ICD Codes: E87.6 - Hypokalemia Status: Acute Plan: Continue to monitor and replete orally as needed. will give more today as his K is still low (3) FEN Plan: Fluids: NS at maintenance rate Electrolytes: continue to monitor Nutrition: Regular diet DVT prophylaxis: Heparin 5000 units sq q12h (4) History of alcohol abuse ICD Codes: Z87.898 - Personal history of other specified conditions Status: Chronic Plan: CIWA protocol PO rally pack Symptoms stable (5) Renal failure ICD Codes: N19 - Unspecified kidney failure Status: Acute Plan: likely from Vanc plus CT dye. will avoid all nephrotoxins. stopped vanc. on ancef now. improving daily (6) Homeless ICD Codes: Z59.0 - Homelessness Status: Chronic Plan: encouraged him to get an apartment with his [facility] check. He has likely been drinking up his money with his alcohol history Problem Qualifiers (1) Renal failure: Qualified Codes: N17.9 - Acute kidney failure, unspecified Mónica Peacock MD May 10, 2017 10:24
[2017-05-10 11:44] VITALS: BP 133/87; PULSE 76; RESP 20; TEMP 96.9; O2SAT 98
[2017-05-10 12:00] VITALS: BP 133/87; PULSE 76; RESP 20; TEMP 96.9; O2SAT 98
[2017-05-10 12:11] LABS: HEMATOCRIT 34.3 % (39.0-51.0); HEMOGLOBIN 11.4 GM/DL (13.0-17.0); MEAN CELL VOLUME 90.5 FL (80.0-100.0); MEAN CORPUSCULAR HEMOGLOBIN 30.1 PG (27.0-34.0); MEAN CORPUSCULAR HGB CONC 33.2 % (32.0-36.0); MEAN PLATELET VOLUME 8.7 FL (7.0-11.0); PLATELET COUNT 215 TH/MM3 (150-450); RED BLOOD COUNT 3.78 MIL/MM3 (4.50-5.90); WHITE BLOOD COUNT 14.4 TH/MM3 (4.0-11.0)
--- NOTE | 2017-05-10 12:37 | HHI.IDPN ---
Note Infectious Disease Note Patient notes less pain in the left leg. Awake and alert. No distress. Denies chills. Presented to the emergency department with lacerated wounds on his lower extremities. PAST MEDICAL HISTORY The patient denies significant history. ALLERGIES NO KNOWN DRUG ALLERGIES. ANTIBIOTICS: Ancef. SOCIAL HISTORY Positive alcohol use. The patient smokes one or two cigarettes a week. He denies illicit drugs. OBJECTIVE: Vital Signs Date Time Temp Pulse Resp B/P (MAP) Pulse Ox O2 Delivery O2 Flow Rate FiO2 05/10/17 11:44 96.9 76 20 133/87 (102) 98 05/10/17 08:00 98.9 77 17 108/61 (77) 96 05/09/17 23:51 99.0 87 18 127/76 (93) 96 05/09/17 20:22 97.4 78 18 120/74 (89) 97 05/09/17 16:00 96.4 80 18 109/72 (84) 98 Laboratory Tests Test 05/09/17 06:05 05/10/17 06:26 05/10/17 12:00 White Blood Count 14.0 TH/MM3 12.7 TH/MM3 14.4 TH/MM3 Red Blood Count 3.59 MIL/MM3 3.64 MIL/MM3 3.78 MIL/MM3 Hemoglobin 10.8 GM/DL 10.9 GM/DL 11.4 GM/DL Hematocrit 32.6 % 32.9 % 34.3 % Mean Corpuscular Volume 90.9 FL 90.5 FL 90.5 FL Mean Corpuscular Hemoglobin 30.2 PG 30.1 PG 30.1 PG Mean Corpuscular Hemoglobin Concent 33.2 % 33.2 % 33.2 % Red Cell Distribution Width 14.7 % 14.9 % 15.0 % Platelet Count 166 TH/MM3 194 TH/MM3 215 TH/MM3 Mean Platelet Volume 8.7 FL 8.3 FL 8.7 FL Neutrophils (%) (Auto) 83.5 % 76.9 % Lymphocytes (%) (Auto) 6.0 % 10.6 % Monocytes (%) (Auto) 8.9 % 10.4 % Eosinophils (%) (Auto) 1.2 % 1.6 % Basophils (%) (Auto) 0.4 % 0.5 % Neutrophils # (Auto) 11.7 TH/MM3 9.8 TH/MM3 Lymphocytes # (Auto) 0.8 TH/MM3 1.3 TH/MM3 Monocytes # (Auto) 1.3 TH/MM3 1.3 TH/MM3 Eosinophils # (Auto) 0.2 TH/MM3 0.2 TH/MM3 Basophils # (Auto) 0.1 TH/MM3 0.1 TH/MM3 CBC Comment DIFF FINAL DIFF FINAL Differential Comment Laboratory Tests Test 05/08/17 22:10 05/09/17 06:05 05/10/17 06:26 Blood Urea Nitrogen 40 MG/DL 41 MG/DL 27 MG/DL Creatinine 3.05 MG/DL 2.82 MG/DL 2.06 MG/DL Random Glucose 113 MG/DL 96 MG/DL 97 MG/DL Calcium Level 7.7 MG/DL 7.4 MG/DL 8.1 MG/DL Sodium Level 133 MEQ/L 136 MEQ/L 135 MEQ/L Potassium Level 3.3 MEQ/L 3.2 MEQ/L 3.1 MEQ/L Chloride Level 102 MEQ/L 106 MEQ/L 106 MEQ/L Carbon Dioxide Level 19.9 MEQ/L 20.4 MEQ/L 19.6 MEQ/L Anion Gap 11 MEQ/L 10 MEQ/L 9 MEQ/L Estimat Glomerular Filtration Rate 21 ML/MIN 23 ML/MIN 33 ML/MIN Total Protein 6.2 GM/DL 6.4 GM/DL Albumin 1.8 GM/DL 1.8 GM/DL Alkaline Phosphatase 267 U/L 101 U/L Aspartate Amino Transf (AST/SGOT) 38 U/L 25 U/L Alanine Aminotransferase (ALT/SGPT) 16 U/L 15 U/L Total Bilirubin 2.7 MG/DL 2.1 MG/DL Protein Corrected Calcium 7.9 MG/DL Magnesium Level 1.8 MG/DL Microbiology Date/Time Source Procedure Growth Status 05/07/17 14:10 Wound Leg Gram Stain - Final Complete 05/07/17 14:10 Wound Culture - Final Staphylococcus Aureus Group A Beta Strep Complete Microbiology Date/Time Source Procedure Growth Status 05/07/17 09:23 Blood Peripheral Aerobic Blood Culture - Preliminary NO GROWTH IN 2 DAYS Resulted 05/07/17 09:23 Blood Peripheral Anaerobic Blood Culture - Preliminary NO GROWTH IN 2 DAYS Resulted 05/07/17 09:23 Blood Peripheral Aerobic Blood Culture - Preliminary NO GROWTH IN 2 DAYS Resulted 05/07/17 09:23 Blood Peripheral Anaerobic Blood Culture - Preliminary NO GROWTH IN 2 DAYS Resulted 05/07/17 14:10 Wound Leg Gram Stain - Final Complete 05/07/17 14:10 Wound Culture - Final Staphylococcus Aureus Group A Beta Strep Complete IMAGING: Renal Ultrasound 05/08/17 0000 Signed Impressions: Service Date/Time: Monday, May 08, 2017 09:47 - CONCLUSION: Echogenic kidneys raising the possibility of medical renal disease. Clinical correlation is recommended. No hydronephrosis or solid renal mass. Unremarkable urinary bladder. Be Branch MD Lower Extremity CT 05/07/17 0000 Signed Impressions: Service Date/Time: Sunday, May 07, 2017 18:40 - CONCLUSION: 1. Cellulitis of the distal leg and foot especially in the dorsum of the foot. No discrete abscess or CT findings of osteomyelitis. Abdiaziz Guaman MD PHYSICAL EXAMINATION GENERAL: No acute distress. HEENT: Head is atraumatic. Extraocular movements grossly intact, pupils reactive to light without icterus. Oropharynx moist mucosa without lesions. NECK: Supple without adenopathy or swelling. LUNGS: Clear to auscultation. HEART: Regular S1, S2 without murmurs, rubs or gallops. ABDOMEN: Bowel sounds present, soft, nontender. EXTREMITIES: The left leg remains erythematous from above the knee down to the dorsum of the foot. Distal tibia ulcerated lesion with shaggy appearing crater which has visible subdermal tissue and there is pale discoloration at the site of that ulceration. The entire left leg is swollen and very warm and the dorsum of the foot has 3+ edema. The patient has several shallow ulcerated clean based areas with weeping of serous fluid. The right foot has an ulcer at the dorsum. SKIN: The patient has a bronze hue to the skin. NEURO: No gross focal findings. PSYCHIATRIC: The patient is calm and cooperative. IMPRESSION 1. Severe cellulitis of the left leg with ulcerative component at the left distal tibia. Slow to improve. Culture showing staph aureus and group A beta strep. Staph (r) to clinda. 2. Leukocytosis secondary to infection. RECOMMENDATIONS 1. Continue Ancef adjusted for renal function. 2. Avoid vancomycin and other nephrotoxic medications. 3. Consider orthopedic consultation if the area of the distal tibia does not improve. The patient may need to have debridement performed by orthopedics or podiatry physician. Wan Bianchi MD May 10, 2017 12:37
[2017-05-10 16:00] VITALS: BP 133/81; PULSE 73; RESP 19; TEMP 97.1; O2SAT 95
[2017-05-10 20:00] VITALS: BP 167/95; PULSE 76; RESP 18; TEMP 98.6; O2SAT 97
[2017-05-10] MEDS ORDERED: PHARMACY ORDERED LAB ONE (21:45)
[2017-05-10 22:47] LABS: AST (GOT) 29 U/L (15-37); BICARBONATE 24.7 MEQ/L (21.0-32.0); BLOOD UREA NITROGEN 23 MG/DL (7-18); CALCIUM 8.2 MG/DL (8.5-10.1); CHLORIDE 107 MEQ/L (98-107); GLOMERULAR FILTRATION RATE 37 ML/MIN (>89); GLUCOSE,RANDOM 105 MG/DL (74-106); SODIUM (NA) 137 MEQ/L (136-145)
[2017-05-10 22:48] LABS: ALT (GPT) 16 U/L (12-78)
[2017-05-10 22:51] LABS: ALKALINE PHOSPHATASE 141 U/L (45-117); TOTAL BILIRUBIN ADULT 1.6 MG/DL (0.2-1.0); TOTAL PROTEIN 6.8 GM/DL (6.4-8.2); VANCOMYCIN TROUGH 6.8 MCG/ML (5.0-10.0)
[2017-05-11] VITALS: BP 141/86; PULSE 74; RESP 18; TEMP 98; O2SAT 94
[2017-05-11] MEDS: SODIUM CHLOR 0.9% 1000 ML INJ 1,000 ML IV SCH ×2 (05:22→20:16)
[2017-05-11 08:00] VITALS: BP 170/94; PULSE 73; RESP 19; TEMP 97; O2SAT 95
[2017-05-11] MEDS: MULTIVITAMINS/MINERALS THERAPEUTIC TAB PO SCH (09:15)
[2017-05-11] MEDS: THIAMINE HCL 100 MG TAB PO SCH (09:15)
[2017-05-11] MEDS: FOLIC ACID 1 MG TAB PO SCH (09:15)
[2017-05-11] MEDS: ACETAMINOPHEN/HYDROcodone 325 MG/10 MG TAB PO PRN ×2 (09:16→15:27)
[2017-05-11] MEDS: HEPARIN SODIUM - SQ 10,000 UNITS/ML VIAL SQ SCH ×2 (09:16→20:16)
[2017-05-11] MEDS: CLOTRIMAZOLE 1% CREAM 15 GM TOPICAL SCH ×2 (09:18→20:18)
[2017-05-11 10:10] LABS: BICARBONATE 19.2 MEQ/L (21.0-32.0); CALCIUM 8.4 MG/DL (8.5-10.1); CREATININE 1.75 MG/DL (0.60-1.30)
--- NOTE | 2017-05-11 10:21 | HHI.FPPN ---
Subjective Remarks Afebrile overnight. No acute complaints. Adequate I/Os, had been ambulating to the restroom. (Columba Boyle MD R1) Objective Vitals Vital Signs Date Time Temp Pulse Resp B/P (MAP) Pulse Ox O2 Delivery O2 Flow Rate FiO2 05/11/17 08:00 97.0 73 19 170/94 (119) 95 05/11/17 00:00 98.0 74 18 141/86 (104) 94 05/10/17 20:00 98.6 76 18 167/95 (119) 97 05/10/17 16:00 97.1 73 19 133/81 (98) 95 05/10/17 12:00 96.9 76 20 133/87 (102) 98 05/10/17 11:44 96.9 76 20 133/87 (102) 98 I/O 05/10/17 05/10/17 05/10/17 05/11/17 05/11/17 05/11/17 07:00 15:00 23:00 07:00 15:00 23:00 Intake Total 1710 ml 240 ml 3060 ml 4817 ml Output Total 1800 ml 3000 ml 2450 ml Balance -90 ml 240 ml 60 ml 2367 ml Intake Oral 760 ml 240 ml 960 ml IV Total 950 ml 2100 ml 4817 ml Output Urine Total 1800 ml 3000 ml 2450 ml # Bowel Movements 1 1 (Columba Boyle MD R1) Result Diagram: 05/10/17 1200 05/10/17 5214 Objective Remarks GENERAL: This is a pleasant male reclining in bed in no acute distress. HEAD: Atraumatic. Normocephalic. EYES: EOMI. No scleral icterus. No injection or drainage. ENT: Moist mucous membranes. NECK: Trachea midline. Supple. CARDIOVASCULAR: Regular rate and rhythm without murmurs, gallops, or rubs. Cap refill about 2 seconds. RESPIRATORY: clear. Breath sounds equal bilaterally. GASTROINTESTINAL: Abdomen soft, non-tender, nondistended. MUSCULOSKELETAL: Improvement in swelling of the left leg, 2 open ulceration noted on the leg. Large healing ulceration on left midshin shows 1in. eschar at the center surrounded by granulation tissue. Able to move toes of the left lower foot. Not able to flex the ankle completely, slight swelling of the ankle and foot with mild erythema and warmth of the skin. SKIN: see above NEUROLOGICAL: Awake and alert. No focal deficits, normal speech. (Columba Boyle MD R1) A/P Assessment and Plan Patient is a 56-year-old male with a history of alcohol abuse presented with sepsis due to left lower extremity cellulitis and abscess. (Columba Boyle MD R1) Attending Attestation Patient seen and examined. Case reviewed and discussed with the resident team. Agree with plan of care as discussed with me and documented in the resident note. he continues to make slow but steady improvement. he was not ambulating well because of the pain and ankle infection (Mónica Peacock MD) Problem List: (1) Left leg cellulitis ICD Codes: L03.116 - Cellulitis of left lower limb Status: Acute Plan: WBC trending down, continue to monitor. Vanc d/c'd due to BRANDON. - ID consulted, IV Ancef Day #3 - Wound cx with heavy growth staph aureus not MRSA, heavy growth group A beta strep - Wound/ostomy consulted - Continue maintenance IVF - PT consulted to eval and treat (2) Hypokalemia ICD Codes: E87.6 - Hypokalemia Status: Acute Plan: Continue to monitor and replete orally as needed. will give more today as his K is still low (3) History of alcohol abuse ICD Codes: Z87.898 - Personal history of other specified conditions Status: Chronic Plan: CIWA protocol PO rally pack Symptoms stable (4) Renal failure ICD Codes: N19 - Unspecified kidney failure Status: Acute Plan: likely from Vanc plus CT dye. will avoid all nephrotoxins. stopped vanc. on ancef now. improving daily (5) Homeless ICD Codes: Z59.0 - Homelessness Status: Chronic Plan: encouraged him to get an apartment with his [facility] check. He has likely been drinking up his money with his alcohol history (6) FEN Plan: Fluids: NS at maintenance rate Electrolytes: continue to monitor Nutrition: Regular diet DVT prophylaxis: Heparin 5000 units sq q12h (Columba Boyle MD R1) Problem Qualifiers (1) Renal failure: Qualified Codes: N17.9 - Acute kidney failure, unspecified Columba Boyle MD R1 May 11, 2017 10:20 Mónica Peacock MD May 13, 2017 13:50
[2017-05-11 12:00] VITALS: BP 158/78; PULSE 64; RESP 19; TEMP 97.7; O2SAT 98
--- NOTE | 2017-05-11 15:04 | HHI.IDPN ---
Note Infectious Disease Note Patient continues to have pain in the left leg. Says that he had difficulty ambulating due to pain. Awake and alert. left foot remains markedly swollen. Denies chills. Presented to the emergency department with lacerated wounds on his lower extremities. PAST MEDICAL HISTORY The patient denies significant history. ALLERGIES NO KNOWN DRUG ALLERGIES. ANTIBIOTICS: Ancef. SOCIAL HISTORY Positive alcohol use. The patient smokes one or two cigarettes a week. He denies illicit drugs. OBJECTIVE: Vital Signs Date Time Temp Pulse Resp B/P (MAP) Pulse Ox O2 Delivery O2 Flow Rate FiO2 05/11/17 12:00 97.7 64 19 158/78 (104) 98 05/11/17 08:00 97.0 73 19 170/94 (119) 95 05/11/17 00:00 98.0 74 18 141/86 (104) 94 05/10/17 20:00 98.6 76 18 167/95 (119) 97 05/10/17 16:00 97.1 73 19 133/81 (98) 95 Laboratory Tests Test 05/10/17 06:26 05/10/17 12:00 White Blood Count 12.7 TH/MM3 14.4 TH/MM3 Red Blood Count 3.64 MIL/MM3 3.78 MIL/MM3 Hemoglobin 10.9 GM/DL 11.4 GM/DL Hematocrit 32.9 % 34.3 % Mean Corpuscular Volume 90.5 FL 90.5 FL Mean Corpuscular Hemoglobin 30.1 PG 30.1 PG Mean Corpuscular Hemoglobin Concent 33.2 % 33.2 % Red Cell Distribution Width 14.9 % 15.0 % Platelet Count 194 TH/MM3 215 TH/MM3 Mean Platelet Volume 8.3 FL 8.7 FL Neutrophils (%) (Auto) 76.9 % Lymphocytes (%) (Auto) 10.6 % Monocytes (%) (Auto) 10.4 % Eosinophils (%) (Auto) 1.6 % Basophils (%) (Auto) 0.5 % Neutrophils # (Auto) 9.8 TH/MM3 Lymphocytes # (Auto) 1.3 TH/MM3 Monocytes # (Auto) 1.3 TH/MM3 Eosinophils # (Auto) 0.2 TH/MM3 Basophils # (Auto) 0.1 TH/MM3 CBC Comment DIFF FINAL Differential Comment Laboratory Tests Test 05/10/17 06:26 05/10/17 22:15 05/11/17 09:12 Blood Urea Nitrogen 27 MG/DL 23 MG/DL 18 MG/DL Creatinine 2.06 MG/DL 1.90 MG/DL 1.75 MG/DL Random Glucose 97 MG/DL 105 MG/DL 151 MG/DL Total Protein 6.4 GM/DL 6.8 GM/DL Albumin 1.8 GM/DL 2.0 GM/DL Calcium Level 8.1 MG/DL 8.2 MG/DL 8.4 MG/DL Magnesium Level 1.8 MG/DL Alkaline Phosphatase 101 U/L 141 U/L Aspartate Amino Transf (AST/SGOT) 25 U/L 29 U/L Alanine Aminotransferase (ALT/SGPT) 15 U/L 16 U/L Total Bilirubin 2.1 MG/DL 1.6 MG/DL Sodium Level 135 MEQ/L 137 MEQ/L 137 MEQ/L Potassium Level 3.1 MEQ/L 3.4 MEQ/L 3.5 MEQ/L Chloride Level 106 MEQ/L 107 MEQ/L 108 MEQ/L Carbon Dioxide Level 19.6 MEQ/L 24.7 MEQ/L 19.2 MEQ/L Anion Gap 9 MEQ/L 5 MEQ/L 10 MEQ/L Estimat Glomerular Filtration Rate 33 ML/MIN 37 ML/MIN 40 ML/MIN Microbiology Date/Time Source Procedure Growth Status 05/07/17 09:23 Blood Peripheral Aerobic Blood Culture - Preliminary NO GROWTH IN 2 DAYS Resulted 05/07/17 09:23 Blood Peripheral Anaerobic Blood Culture - Preliminary NO GROWTH IN 2 DAYS Resulted 05/07/17 09:23 Blood Peripheral Aerobic Blood Culture - Preliminary NO GROWTH IN 2 DAYS Resulted 05/07/17 09:23 Blood Peripheral Anaerobic Blood Culture - Preliminary NO GROWTH IN 2 DAYS Resulted 05/07/17 14:10 Wound Leg Gram Stain - Final Complete 05/07/17 14:10 Wound Culture - Final Staphylococcus Aureus Group A Beta Strep Complete IMAGING: Renal Ultrasound 05/08/17 0000 Signed Impressions: Service Date/Time: Monday, May 08, 2017 09:47 - CONCLUSION: Echogenic kidneys raising the possibility of medical renal disease. Clinical correlation is recommended. No hydronephrosis or solid renal mass. Unremarkable urinary bladder. Be Branch MD Lower Extremity CT 05/07/17 0000 Signed Impressions: Service Date/Time: Sunday, May 07, 2017 18:40 - CONCLUSION: 1. Cellulitis of the distal leg and foot especially in the dorsum of the foot. No discrete abscess or CT findings of osteomyelitis. Abdiaziz Guaman MD PHYSICAL EXAMINATION GENERAL: No acute distress. HEENT: Head is atraumatic. Extraocular movements grossly intact, pupils reactive to light without icterus. Oropharynx moist mucosa without lesions. NECK: Supple without adenopathy or swelling. LUNGS: Clear to auscultation. HEART: Regular S1, S2 without murmurs, rubs or gallops. ABDOMEN: Soft, nontender. EXTREMITIES: The left leg remains erythematous from above the knee down to the dorsum of the foot. Distal tibia ulcerated lesion unchanged with purplish discoloration. large blister at ankle. The left leg is swollen and very warm and the dorsum of the foot has 3+ edema. The patient has several shallow ulcerated clean based areas with weeping of serous fluid. The right foot has an ulcer at the dorsum. SKIN: The patient has a bronze hue to the skin. NEURO: No gross focal findings. PSYCHIATRIC: The patient is calm and cooperative. IMPRESSION 1. Severe cellulitis of the left leg with ulcerative component at the left distal tibia. Not showing improvement. Culture showing staph aureus and group A beta strep. Staph (r) to clinda. ? necrosis. ? development of underlying abscess. 2. Leukocytosis. WBC remain elevated. RECOMMENDATIONS 1. Continue Ancef, increase dose to 2gm Q 12 hrs. 2. Avoid vancomycin and other nephrotoxic medications. 3. MRI of the left leg. Evaluate for abscess. 4. Orthopedic consultation. The patient may need to have debridement of the leg. D/W Dr Boyle. Wan Bianchi MD May 11, 2017 15:04
[2017-05-11 16:00] VITALS: BP 178/85; PULSE 71; RESP 19; TEMP 98.6; O2SAT 97
[2017-05-11] MEDS: ceFAZolin 2 GM PREMIX 50 ML IV SCH (18:37)
[2017-05-11] MEDS ORDERED: GADOBENATE DIM PF 529 MG/ML 20ML VIAL (for RAD MRI) IV ONE (18:51)
--- NOTE | 2017-05-11 19:23 | RADRPT ---
EXAM DATE/TIME: 05/11/2017 17:34 [facility] COMPARISON: No previous studies available for comparison. INDICATIONS : Wounds on distal left tibia from running through the [place] 2 weeks ago. CONTRAST: 20 cc Multihance (gadobenate) IV MEDICAL HISTORY : None. SURGICAL HISTORY : None. ENCOUNTER: Subsequent ACUITY: 2 weeks PAIN SCORE: 2/10 LOCATION: Left distal leg TECHNIQUE: Multiplanar multisequence MRI examination of the lower leg was performed with and without contrast. FINDINGS: There is diffuse soft tissue swelling along the mid and distal leg greatest along the medial aspect. After contrast there is patchy enhancement with multiple low signal areas of fluid noted. The largest of this is located medially and measures up to approximately 1.5 x 0.7 cm. There is normal marrow si gnal in the bony structures with no marrow edema or destructive change. The flexor and extensor muscu lature appear intact. Regions of the neurovascular bundle appear unremarkable. CONCLUSION: Diffuse tissue swelling and edema. The largest small fluid collection was located med ially and was measured at 1.5 x 0.7 cm. Infection is not excluded. There is no evidence of osteomyeli tis. Richie Kelly MD on May 11, 2017 at 19:19 Board Certified Radiologist. This report was verified electronically.
[2017-05-11 20:07] VITALS: BP 150/84; PULSE 82; RESP 20; TEMP 97.6; O2SAT 98
[2017-05-11 23:53] VITALS: BP 159/89; PULSE 77; RESP 20; TEMP 96.9; O2SAT 98
[2017-05-12] MEDS: SODIUM CHLOR 0.9% 1000 ML INJ 1,000 ML IV SCH ×4 (02:04→22:04)
[2017-05-12] MEDS: ceFAZolin 2 GM PREMIX 50 ML IV SCH ×2 (04:00→16:38)
[2017-05-12 08:00] VITALS: BP 167/88; PULSE 62; RESP 20; TEMP 98.8; O2SAT 97
[2017-05-12] MEDS: HEPARIN SODIUM - SQ 10,000 UNITS/ML VIAL SQ SCH ×2 (08:54→22:11)
[2017-05-12] MEDS: FOLIC ACID 1 MG TAB PO SCH (08:54)
[2017-05-12] MEDS: ACETAMINOPHEN/HYDROcodone 325 MG/10 MG TAB PO PRN ×3 (08:54→22:11)
[2017-05-12] MEDS: MULTIVITAMINS/MINERALS THERAPEUTIC TAB PO SCH (08:54)
[2017-05-12] MEDS: THIAMINE HCL 100 MG TAB PO SCH (08:54)
[2017-05-12] MEDS: CLOTRIMAZOLE 1% CREAM 15 GM TOPICAL SCH ×2 (08:55→22:14)
[2017-05-12 10:09] LABS: HEMATOCRIT 35.3 % (39.0-51.0); HEMOGLOBIN 11.8 GM/DL (13.0-17.0); MEAN CELL VOLUME 89.9 FL (80.0-100.0); MEAN CORPUSCULAR HEMOGLOBIN 30.1 PG (27.0-34.0); MEAN CORPUSCULAR HGB CONC 33.4 % (32.0-36.0); MEAN PLATELET VOLUME 8.2 FL (7.0-11.0); PLATELET COUNT 315 TH/MM3 (150-450); RED BLOOD COUNT 3.93 MIL/MM3 (4.50-5.90); RED CELL DISTRIBUTION WIDTH 15.3 % (11.6-17.2); WHITE BLOOD COUNT 10.4 TH/MM3 (4.0-11.0)
[2017-05-12 10:30] LABS: AST (GOT) 26 U/L (15-37); BICARBONATE 21.2 MEQ/L (21.0-32.0); BLOOD UREA NITROGEN 11 MG/DL (7-18); CALCIUM 8.4 MG/DL (8.5-10.1); CHLORIDE 104 MEQ/L (98-107); CREATININE 1.41 MG/DL (0.60-1.30); GLOMERULAR FILTRATION RATE 52 ML/MIN (>89); GLUCOSE,RANDOM 177 MG/DL (74-106); SODIUM (NA) 137 MEQ/L (136-145)
[2017-05-12 10:31] LABS: ALT (GPT) 14 U/L (12-78)
[2017-05-12 10:34] LABS: ALKALINE PHOSPHATASE 173 U/L (45-117); TOTAL PROTEIN 7.5 GM/DL (6.4-8.2)
[2017-05-12 12:00] VITALS: BP 157/87; PULSE 52; RESP 20; TEMP 96.9; O2SAT 95
[2017-05-12] MEDS ORDERED: POTASSIUM CHLORIDE 10 MEQ CONTROLLED RELEASE TAB PO ONE (12:30)
--- NOTE | 2017-05-12 13:25 | HHI.IDPN ---
Note Infectious Disease Note Patient continues to have pain in the left leg. Afebrile. Awake and alert. Denies chills. Slight decrease in swelling at the left foot. Presented to the emergency department with lacerated wounds on his lower extremities. PAST MEDICAL HISTORY The patient denies significant history. ALLERGIES NO KNOWN DRUG ALLERGIES. ANTIBIOTICS: Ancef. SOCIAL HISTORY Positive alcohol use. The patient smokes one or two cigarettes a week. He denies illicit drugs. OBJECTIVE: Laboratory Tests Test 05/12/17 09:40 White Blood Count 10.4 TH/MM3 Red Blood Count 3.93 MIL/MM3 Hemoglobin 11.8 GM/DL Hematocrit 35.3 % Mean Corpuscular Volume 89.9 FL Mean Corpuscular Hemoglobin 30.1 PG Mean Corpuscular Hemoglobin Concent 33.4 % Red Cell Distribution Width 15.3 % Platelet Count 315 TH/MM3 Mean Platelet Volume 8.2 FL Laboratory Tests Test 05/10/17 22:15 05/11/17 09:12 05/12/17 09:40 Blood Urea Nitrogen 23 MG/DL 18 MG/DL 11 MG/DL Creatinine 1.90 MG/DL 1.75 MG/DL 1.41 MG/DL Random Glucose 105 MG/DL 151 MG/DL 177 MG/DL Total Protein 6.8 GM/DL 7.5 GM/DL Albumin 2.0 GM/DL 2.0 GM/DL Calcium Level 8.2 MG/DL 8.4 MG/DL 8.4 MG/DL Alkaline Phosphatase 141 U/L 173 U/L Aspartate Amino Transf (AST/SGOT) 29 U/L 26 U/L Alanine Aminotransferase (ALT/SGPT) 16 U/L 14 U/L Total Bilirubin 1.6 MG/DL 1.0 MG/DL Sodium Level 137 MEQ/L 137 MEQ/L 137 MEQ/L Potassium Level 3.4 MEQ/L 3.5 MEQ/L 3.1 MEQ/L Chloride Level 107 MEQ/L 108 MEQ/L 104 MEQ/L Carbon Dioxide Level 24.7 MEQ/L 19.2 MEQ/L 21.2 MEQ/L Anion Gap 5 MEQ/L 10 MEQ/L 12 MEQ/L Estimat Glomerular Filtration Rate 37 ML/MIN 40 ML/MIN 52 ML/MIN Vital Signs Date Time Temp Pulse Resp B/P (MAP) Pulse Ox O2 Delivery O2 Flow Rate FiO2 05/12/17 08:00 98.8 62 20 167/88 (114) 97 05/11/17 23:53 96.9 77 20 159/89 (112) 98 05/11/17 20:07 97.6 82 20 150/84 (106) 98 05/11/17 16:00 98.6 71 19 178/85 (116) 97 Microbiology Date/Time Source Procedure Growth Status 05/07/17 09:23 Blood Peripheral Aerobic Blood Culture - Preliminary NO GROWTH IN 2 DAYS Resulted 05/07/17 09:23 Blood Peripheral Anaerobic Blood Culture - Preliminary NO GROWTH IN 2 DAYS Resulted 05/07/17 09:23 Blood Peripheral Aerobic Blood Culture - Preliminary NO GROWTH IN 2 DAYS Resulted 05/07/17 09:23 Blood Peripheral Anaerobic Blood Culture - Preliminary NO GROWTH IN 2 DAYS Resulted 05/07/17 14:10 Wound Leg Gram Stain - Final Complete 05/07/17 14:10 Wound Culture - Final Staphylococcus Aureus Group A Beta Strep Complete IMAGING: Lower Extremity MRI 05/11/17 0000 Signed Impressions: Service Date/Time: Thursday, May 11, 2017 17:34 - CONCLUSION: Diffuse tissue swelling and edema. The largest small fluid collection was located medially and was measured at 1.5 x 0.7 cm. Infection is not excluded. There is no evidence of osteomyelitis. Richie Kelly MD Renal Ultrasound 05/08/17 0000 Signed Impressions: Service Date/Time: Monday, May 08, 2017 09:47 - CONCLUSION: Echogenic kidneys raising the possibility of medical renal disease. Clinical correlation is recommended. No hydronephrosis or solid renal mass. Unremarkable urinary bladder. Be Branch MD Lower Extremity CT 05/07/17 0000 Signed Impressions: Service Date/Time: Sunday, May 07, 2017 18:40 - CONCLUSION: 1. Cellulitis of the distal leg and foot especially in the dorsum of the foot. No discrete abscess or CT findings of osteomyelitis. Abdiaziz Guaman MD PHYSICAL EXAMINATION GENERAL: No acute distress. HEENT: Head is atraumatic. Extraocular movements grossly intact, pupils reactive to light without icterus. Oropharynx moist mucosa without lesions. NECK: Supple without adenopathy or swelling. LUNGS: Clear to auscultation. HEART: Regular S1, S2 without murmurs, rubs or gallops. ABDOMEN: Soft, nontender. EXTREMITIES: The left leg remains erythematous from above the knee down to the dorsum of the foot. Distal tibia ulcerated lesion unchanged with purplish discoloration. Broken blister at ankle. The left leg is swollen and very warm and the dorsum of the foot has 2+ edema. The patient has several shallow ulcerated clean based areas with weeping of serous fluid. The right foot has an ulcer at the dorsum. SKIN: The patient has a bronze hue to the skin. NEURO: No gross focal findings. PSYCHIATRIC: The patient is calm and cooperative. IMPRESSION 1. Severe cellulitis of the left leg with ulcerative component at the left distal tibia. Not showing improvement. Culture showing staph aureus and group A beta strep. Staph (r) to clinda. MRI shows small fluid collection. No osteo. 2. Leukocytosis. WBC improved. RECOMMENDATIONS 1. Continue Ancef. 2. Avoid vancomycin and other nephrotoxic medications. 3. Monitor wound. Wan Bianchi MD May 12, 2017 13:25
--- NOTE | 2017-05-12 14:01 | PD.CONS ---
cc: Russell Logan Jr., MD HPI Service Orthopedic Surgeons Consult Requested By Primary Care Physician [facility] Admission Diagnosis left leg cellulitis. Hyponatremia. Hypokalemia. Diagnoses: Chief Complaint: LEFT lower extremity lacerations History of Present Illness 56-year-old gentleman who presented to the emergency department with lacerated wounds on his lower extremities. The patient states that he was walking [place] and was trying to get to [place] and to [place]. He walked into a barbed wire fence and got cuts and lacerations and, after that, he stumbled into some other heavy brush and eventually got to the main road area and then he was walking and was picked up by a passerby with motor vehicle and was transported to the bus station where he then was brought to the emergency department for evaluation. The patient has a history of alcoholism and he drinks heavily approximately four days a week. he reports swelling and pain in the LEFT leg with some small open wounds. At the time though there was mild drainage. he denies any fevers. Swelling increased over the next day and he developed difficulty weightbearing. He reports LEFT leg pain 3 out of 5, exacerbated by weightbearing, pain is nonradiating and sharp, relieved at rest, denies any fevers, denies any some purulent drainage. He denies chills, nausea, vomiting, shortness of breath. Culture from the wound has staph aureus and group A beta strep. PAST MEDICAL HISTORY The patient denies significant history. ALLERGIES NO KNOWN DRUG ALLERGIES. MEDICATIONS 1. Piperacillin/tazobactam. 2. Multivitamin 3. Thiamine, 4. Folate. 5. Inchelium 10. SOCIAL HISTORY Positive alcohol use. The patient smokes one or two cigarettes a week. He denies illicit drugs. FAMILY HISTORY Unknown. The patient was adopted. He is by descent. REVIEW OF SYSTEMS Negative except for pain in the left leg Past Family Social History Allergies: Coded Allergies: No Known Allergies (Unverified , 04/13/17) Active Ordered Medications Current Medications Medications (Trade) Dose Ordered Sig/Jameson Route Start Time Stop Time Status Last Admin (Folate) 1 mg DAILY PO 05/08/17 09:00 05/13/17 08:59 05/12/17 08:54 (Vitamin B1) 100 mg DAILY PO 05/08/17 09:00 05/12/17 08:54 (Theragran M Tab) 1 tab DAILY PO 05/08/17 09:00 05/13/17 08:59 05/12/17 08:54 (Haldol Inj) 2 mg Q15M PRN IM 05/07/17 13:00 (Romazicon Inj) 0.2 mg Q1M PRN IV PUSH 05/07/17 13:00 (Ativan) 1 mg Q4H PRN PO 05/07/17 13:00 (Ativan Inj) 1 mg Q4H PRN IV PUSH 05/07/17 13:00 (Ativan) 2 mg Q2H PRN PO 05/07/17 13:00 (Ativan Inj) 2 mg Q2H PRN IV PUSH 05/07/17 13:00 (Ativan Inj) 2 mg Q1H PRN IV PUSH 05/07/17 13:00 (Ativan Inj) 2 mg Q15M PRN IV PUSH 05/07/17 13:00 Sodium Chloride 1,000 ml @ 150 mls/hr Q6H40M IV 05/07/17 14:00 05/12/17 02:04 (Heparin Inj) 5,000 units Q12HR SQ 05/08/17 09:00 05/12/17 08:54 (Inchelium 5-325 Mg) 1 tab Q6H PRN PO 05/08/17 09:15 05/10/17 21:32 (Inchelium 10-325 Mg) 1 tab Q6H PRN PO 05/08/17 09:15 05/12/17 13:38 (Lotrimin 1% Cream) 1 applic Q12HR TOPICAL 05/09/17 13:30 05/12/17 08:55 Cefazolin Sodium/ Dextrose 50 ml @ 100 mls/hr Q12H IV 05/11/17 16:00 05/12/17 04:00 Reported Meds & Active Scripts Active No Active Prescriptions or Reported Medications Physical Exam Vital Signs Vital Signs Date Time Temp Pulse Resp B/P (MAP) Pulse Ox O2 Delivery O2 Flow Rate FiO2 05/12/17 12:00 96.9 52 20 157/87 (110) 95 05/12/17 08:00 98.8 62 20 167/88 (114) 97 05/11/17 23:53 96.9 77 20 159/89 (112) 98 05/11/17 20:07 97.6 82 20 150/84 (106) 98 05/11/17 16:00 98.6 71 19 178/85 (116) 97 Physical Exam Alert awake and oriented x 3. No acute distress. Head: NC/AT Neck: No pain with any range of motion and neck. Pulmonary: Normal respiratory effort. bilateral upper extremity: Intact sensation distally in median, ulnar, and radial nerve. Intact motor in anterior interosseous, posterior interosseous, and ulnar nerve. 2+ radial artery pulses. Good cap refill. RIGHT lower extremity: Neurovascularly intact, +EHL/FHL, + PT/DP pulses. Supple compartments. Negative Homans sign. LEFT lower extremity: Neurovascularly intact, +EHL/FHL, dressing removed. Some multiple small wounds, laceration and scratches and scabs along the distal leg. There is no purulent drainage, erythema, no induration, + PT/DP pulses. Supple compartments. Negative Homans sign. Laboratory Laboratory Tests Test 05/11/17 16:04 05/12/17 09:40 Urine Eosinophils NONE SEEN White Blood Count 10.4 Red Blood Count 3.93 Hemoglobin 11.8 Hematocrit 35.3 Mean Corpuscular Volume 89.9 Mean Corpuscular Hemoglobin 30.1 Mean Corpuscular Hemoglobin Concent 33.4 Red Cell Distribution Width 15.3 Platelet Count 315 Mean Platelet Volume 8.2 Blood Urea Nitrogen 11 Creatinine 1.41 Random Glucose 177 Total Protein 7.5 Albumin 2.0 Calcium Level 8.4 Alkaline Phosphatase 173 Aspartate Amino Transf (AST/SGOT) 26 Alanine Aminotransferase (ALT/SGPT) 14 Total Bilirubin 1.0 Sodium Level 137 Potassium Level 3.1 Chloride Level 104 Carbon Dioxide Level 21.2 Anion Gap 12 Estimat Glomerular Filtration Rate 52 Date/Time Source Procedure Growth Status 05/07/17 09:23 Blood Peripheral Aerobic Blood Culture - Final NO GROWTH IN 5 DAYS Complete 05/07/17 09:23 Blood Peripheral Anaerobic Blood Culture - Final NO GROWTH IN 5 DAYS Complete 05/07/17 14:10 Wound Leg Gram Stain - Final Complete 05/07/17 14:10 Wound Culture - Final Staphylococcus Aureus Group A Beta Strep Complete Result Diagram: 05/12/17 0940 05/12/17 0940 Imaging Last 72 hours Impressions Lower Extremity MRI 05/11/17 0000 Signed Impressions: Service Date/Time: Thursday, May 11, 2017 17:34 - CONCLUSION: Diffuse tissue swelling and edema. The largest small fluid collection was located medially and was measured at 1.5 x 0.7 cm. Infection is not excluded. There is no evidence of osteomyelitis. Richie Kelly MD Assessment & Plan Assessment and Plan 56-year-old male sustained multiple lacerations to LEFT leg from injuries sustained while running in the [employer]. On exam, he is grossly neurovascularly intact with generalized diffuse swelling from the mid tibia distally. His wounds appear healthy and are healing well with mild surrounding erythema and generalized cellulitis in the posterior aspect of the leg. His compartments are soft. There is no fluctuance or induration or any signs of deep infection. There is moderate swelling of the foot making weightbearing somewhat difficult. There is no need for any surgical intervention at this time. I recommend continued wound care and medical treatment with IV antibiotics. WBAT. Follow- up with primary care in 2 weeks Russell Logan Jr., MD May 12, 2017 14:01
[2017-05-12] MEDS ORDERED: cloNIDine HCL 0.1 MG TAB PO PRN (14:45)
--- NOTE | 2017-05-12 14:52 | HHI.FPPN ---
Subjective Remarks Patient states he is doing better today than yesterday; left leg is less painful. Afebrile overnight. Blood pressure is elevated at 150s-170s/80s. Patient states that he is hardly ambulating at all. (Columba Boyle MD R1) Objective Vitals Vital Signs Date Time Temp Pulse Resp B/P (MAP) Pulse Ox O2 Delivery O2 Flow Rate FiO2 05/12/17 12:00 96.9 52 20 157/87 (110) 95 05/12/17 08:00 98.8 62 20 167/88 (114) 97 05/11/17 23:53 96.9 77 20 159/89 (112) 98 05/11/17 20:07 97.6 82 20 150/84 (106) 98 05/11/17 16:00 98.6 71 19 178/85 (116) 97 I/O 05/11/17 05/11/17 05/11/17 05/12/17 05/12/17 05/12/17 07:00 15:00 23:00 07:00 15:00 23:00 Intake Total 4817 ml 120 ml 2510 ml 2200 ml 120 ml Output Total 2450 ml 1000 ml 2400 ml Balance 2367 ml 120 ml 1510 ml -200 ml 120 ml Intake Oral 120 ml 960 ml 1200 ml 120 ml IV Total 4817 ml 1550 ml 1000 ml Output Urine Total 2450 ml 1000 ml 2400 ml # Bowel Movements 0 2 (Columba Boyle MD R1) Result Diagram: 05/12/1740 05/12/17 0940 Objective Remarks GENERAL: This is a pleasant male reclining in bed in no acute distress. HEAD: Atraumatic. Normocephalic. EYES: EOMI. No scleral icterus. No injection or drainage. ENT: Moist mucous membranes. NECK: Trachea midline. Supple. CARDIOVASCULAR: Regular rate and rhythm without murmurs, gallops, or rubs. RESPIRATORY: clear. Breath sounds equal bilaterally. GASTROINTESTINAL: Abdomen soft, non-tender, nondistended. MUSCULOSKELETAL: Improvement in swelling of the left leg, 2 ulcerations noted on the leg. Large healing lesion on left midshin shows 1in. eschar at the center surrounded by granulation tissue. 3 cm healing lesion on the distal medial aspect of the left lower leg evident with granulation tissue and minimal drainage of serosanguineous fluid. Able to move toes of the left lower foot. Not able to flex the ankle completely, slight swelling of the ankle and foot with mild erythema and warmth of the skin. SKIN: see above NEUROLOGICAL: Awake and alert. No focal deficits, normal speech. (Columba Boyle MD R1) A/P Assessment and Plan Patient is a 56-year-old male with a history of alcohol abuse presented with sepsis due to left lower extremity cellulitis and abscess. Receiving antibiotics , IV fluids, heparin for DVT prophylaxis, [place] for pain control. ID and orthopedic surgery have been consulted. Left leg appears to be nonoperable. We' ll continue treatment and plan for discharge. Discharge Planning Patient does not appear to have benefits with the [facility], Patient has benefits for a SNF. CN also contacted VA contact to inquire about VA benefits since it is unclear whether or not steve has benefits. HHC does not appear to be a viable option since patient is homeless. Will plan for D/C pending clinical improvement and improved mobility. (Columba Boyle MD R1) Attending Attestation Patient seen and examined. Case reviewed and discussed with the resident team. Agree with plan of care as discussed with me and documented in the resident note. hopefully he can get into a SNF. He has expressed a preference for staying in a hotel at D/C. If unable to ambulate well, a SNF would be best. Wound care clinic could be considered as he would probably make weekly visits which would be easier on him, since his insurance will not cover home visits to a hotel. His wounds have great granulation tissue at this point and need good nonstick dressings. can see when ID feels he can go on po meds as he does have some remaining cellulitis of the foot and ankle (Mónica Peacock MD) Problem List: (1) Left leg cellulitis ICD Codes: L03.116 - Cellulitis of left lower limb Status: Acute Plan: WBC trending down, continue to monitor. Vanc d/c'd due to BRANDON. - ID consulted - IV Ancef Day #4 - Wound cx with heavy growth staph aureus not MRSA, heavy growth group A beta strep - Continue maintenance IVF - PT consulted to perform activity therapy 3x/week (2) Hypokalemia ICD Codes: E87.6 - Hypokalemia Status: Acute Plan: Continue to monitor and replete orally as needed. (3) History of alcohol abuse ICD Codes: Z87.898 - Personal history of other specified conditions Status: Chronic Plan: CIWA protocol PO rally pack Symptoms stable (4) Renal failure ICD Codes: N19 - Unspecified kidney failure Status: Acute Plan: S/p Vanc plus CT dye. - will avoid all nephrotoxins. -stopped vanc. on ancef now. - improving daily, BUN/Cr =05/12.41 . (5) Homeless ICD Codes: Z59.0 - Homelessness Status: Chronic Plan: Has [employer] insurance, is a [facility] patient. Likely no C. Receives a [facility] check. Consulted CM, in communication to formulate outpatient plan. (6) FEN Plan: Fluids: NS at maintenance rate Electrolytes: continue to monitor w/daily BMP, supplement as needed Nutrition: Regular diet DVT prophylaxis: Heparin 5000 units sq q12h (Columba Boyle MD R1) Problem Qualifiers (1) Renal failure: Qualified Codes: N17.9 - Acute kidney failure, unspecified Columba Boyle MD R1 May 12, 2017 14:52 Mónica Peacock MD May 13, 2017 13:55
[2017-05-12 16:00] VITALS: BP 164/94; PULSE 62; RESP 19; TEMP 97.2; O2SAT 98
[2017-05-12 20:26] VITALS: BP 160/92; PULSE 89; RESP 20; TEMP 97.8; O2SAT 98
[2017-05-13] VITALS (7 sets, daily range): BP systolic 125–169; BP diastolic 80–97; PULSE 63–68; RESP 17–19; TEMP 97.2–97.9; O2SAT 96–98
[2017-05-13] MEDS: ceFAZolin 2 GM PREMIX 50 ML IV SCH ×2 (04:11→16:05)
[2017-05-13] MEDS: SODIUM CHLOR 0.9% 1000 ML INJ 1,000 ML IV SCH (04:44)
[2017-05-13] MEDS: ACETAMINOPHEN/HYDROcodone 325 MG/10 MG TAB PO PRN ×3 (06:15→18:32)
[2017-05-13] MEDS: HEPARIN SODIUM - SQ 10,000 UNITS/ML VIAL SQ SCH ×2 (08:06→20:49)
[2017-05-13] MEDS: THIAMINE HCL 100 MG TAB PO SCH (08:06)
[2017-05-13] MEDS: CLOTRIMAZOLE 1% CREAM 15 GM TOPICAL SCH (08:07)
--- NOTE | 2017-05-13 09:47 | HHI.FPPN ---
Subjective Remarks Mr Momin's wounds continue to heal. He is able to ambulate better and has less pain. We discussed his going to a SNF to continue wound healing and he is fine with that. He was told that his kidneys are better but not perfect. He still needs daily K but should be improving over time where in the week or so he will not need K supplements as long as things continue to improve. Unsure whether he still needs ancef vs another abx. Can ask ID to clarify as he hopefully can go to SNF soon. Objective Vitals Vital Signs Date Time Temp Pulse Resp B/P (MAP) Pulse Ox O2 Delivery O2 Flow Rate FiO2 05/13/17 07:50 97.7 68 19 125/80 (95) 97 05/13/17 00:07 97.6 64 18 159/86 (110) 96 05/12/17 20:26 97.8 89 20 160/92 (114) 98 05/12/17 16:00 97.2 62 19 164/94 (117) 98 05/12/17 12:00 96.9 52 20 157/87 (110) 95 I/O 05/12/17 05/12/17 05/12/17 05/13/17 05/13/17 05/13/17 07:00 15:00 23:00 07:00 15:00 23:00 Intake Total 2200 ml 1120 ml 1200 ml 810 ml Output Total 2400 ml 3500 ml 1800 ml Balance -200 ml 1120 ml -2300 ml -990 ml Intake Oral 1200 ml 120 ml 1200 ml 760 ml IV Total 1000 ml 1000 ml 50 ml Output Urine Total 2400 ml 3500 ml 1800 ml # Bowel Movements 2 0 1 Result Diagram: 05/12/1793905/12/17939 Objective Remarks GENERAL: This is a pleasant male reclining in bed in no acute distress. HEAD: Atraumatic. Normocephalic. EYES: EOMI. No scleral icterus. No injection or drainage. ENT: Moist mucous membranes. NECK: Trachea midline. Supple. CARDIOVASCULAR: Regular rate and rhythm without murmurs, gallops, or rubs. RESPIRATORY: clear. Breath sounds equal bilaterally. GASTROINTESTINAL: Abdomen soft, non-tender, nondistended. MUSCULOSKELETAL: Improvement in swelling of the left leg, 2 ulcerations noted on the leg. Large healing lesion on left midshin shows 1in. eschar at the center surrounded by granulation tissue. 3 cm healing lesion on the distal medial aspect of the left lower leg evident with granulation tissue and minimal drainage of serosanguineous fluid. Able to move toes of the left lower foot. Not able to flex the ankle completely, slight swelling of the ankle and foot with mild erythema and warmth of the skin. Improved ability to ambulate and move his foot and ankle. SKIN: see above NEUROLOGICAL: Awake and alert. No focal deficits, normal speech. Urinary Catheter: No Vascular Central Line Catheter: No A/P Assessment and Plan Patient is a 56-year-old male with a history of alcohol abuse presented with sepsis due to left lower extremity cellulitis and abscess. Receiving antibiotics , IV fluids, heparin for DVT prophylaxis, [place] for pain control. ID and orthopedic surgery have been consulted. Left leg appears to be nonoperable. We' ll continue treatment and plan for discharge. Discharge Planning Patient does not appear to have benefits with the [facility], Patient has benefits for a SNF. CN also contacted VA contact to inquire about VA benefits since it is unclear whether or not patient has benefits. [facility] does not appear to be a viable option since patient is homeless. Will plan for D/C pending clinical improvement and improved mobility. Problem List: (1) Left leg cellulitis ICD Codes: L03.116 - Cellulitis of left lower limb Status: Acute Plan: WBC trending down, continue to monitor. Vanc d/c'd due to BRANDON. - ID consulted - IV Ancef Day #5 - Wound cx with heavy growth staph aureus not MRSA, heavy growth group A beta strep - Continue maintenance IVF, can consider D/C ing as he is taking good po and his kidneys improved - PT consulted to perform activity therapy 3x/week (2) Hypokalemia ICD Codes: E87.6 - Hypokalemia Status: Acute Plan: Continue to monitor and replete orally as needed. needs this probably because his kidneys are not completely recovered from his BRANDON. (3) History of alcohol abuse ICD Codes: Z87.898 - Personal history of other specified conditions Status: Chronic Plan: CIWA protocol PO rally pack Symptoms stable (4) Renal failure ICD Codes: N19 - Unspecified kidney failure Status: Acute Plan: S/p Vanc plus CT dye. - will avoid all nephrotoxins. -stopped vanc. on ancef now. - improving daily, BUN/Cr =05/12.41 . (5) Homeless ICD Codes: Z59.0 - Homelessness Status: Chronic Plan: Has insurance, is a [facility] patient. Likely no HHC. Receives a [facility] check. Consulted CM, in communication to formulate outpatient plan. (6) FEN Plan: Fluids: NS at maintenance rate Electrolytes: continue to monitor w/daily BMP, supplement as needed Nutrition: Regular diet DVT prophylaxis: Heparin 5000 units sq q12h Problem Qualifiers (1) Renal failure: Qualified Codes: N17.9 - Acute kidney failure, unspecified Mónica Peacock MD May 13, 2017 09:47
[2017-05-13] MEDS: POTASSIUM CHLORIDE 20 MEQ CONTROLLED RELEASE TAB PO SCH ×2 (10:31→20:49)
[2017-05-13 11:17] LABS: ALBUMIN 2.1 GM/DL (3.4-5.0); AST (GOT) 31 U/L (15-37); BICARBONATE 23.1 MEQ/L (21.0-32.0); BLOOD UREA NITROGEN 10 MG/DL (7-18); CALCIUM 8.4 MG/DL (8.5-10.1); CHLORIDE 101 MEQ/L (98-107); CREATININE 1.31 MG/DL (0.60-1.30); GLOMERULAR FILTRATION RATE 56 ML/MIN (>89); GLUCOSE,RANDOM 86 MG/DL (74-106); SODIUM (NA) 136 MEQ/L (136-145)
[2017-05-13 11:20] LABS: ALKALINE PHOSPHATASE 182 U/L (45-117); ALT (GPT) 13 U/L (12-78); TOTAL BILIRUBIN ADULT 0.9 MG/DL (0.2-1.0); TOTAL PROTEIN 7.9 GM/DL (6.4-8.2)
--- NOTE | 2017-05-13 15:57 | HHI.IDPN ---
Note Infectious Disease Note Patient continues to have pain in the left leg 4-11/18. Afebrile. Awake and alert. Denies chills. Presented to the emergency department with lacerated wounds on his lower extremities. PAST MEDICAL HISTORY The patient denies significant history. ALLERGIES NO KNOWN DRUG ALLERGIES. ANTIBIOTICS: Ancef. SOCIAL HISTORY Positive alcohol use. The patient smokes one or two cigarettes a week. He denies illicit drugs. OBJECTIVE: Vital Signs Date Time Temp Pulse Resp B/P (MAP) Pulse Ox O2 Delivery O2 Flow Rate FiO2 05/13/17 12:00 97.6 68 17 143/90 (107) 97 05/13/17 07:50 97.7 68 19 125/80 (95) 97 05/13/17 00:07 97.6 64 18 159/86 (110) 96 05/12/17 20:26 97.8 89 20 160/92 (114) 98 05/12/17 16:00 97.2 62 19 164/94 (117) 98 Laboratory Tests Test 05/12/17 09:40 White Blood Count 10.4 TH/MM3 Red Blood Count 3.93 MIL/MM3 Hemoglobin 11.8 GM/DL Hematocrit 35.3 % Mean Corpuscular Volume 89.9 FL Mean Corpuscular Hemoglobin 30.1 PG Mean Corpuscular Hemoglobin Concent 33.4 % Red Cell Distribution Width 15.3 % Platelet Count 315 TH/MM3 Mean Platelet Volume 8.2 FL Laboratory Tests Test 05/12/17 09:40 05/13/17 07:47 Blood Urea Nitrogen 11 MG/DL 10 MG/DL Creatinine 1.41 MG/DL 1.31 MG/DL Random Glucose 177 MG/DL 86 MG/DL Total Protein 7.5 GM/DL 7.9 GM/DL Albumin 2.0 GM/DL 2.1 GM/DL Calcium Level 8.4 MG/DL 8.4 MG/DL Alkaline Phosphatase 173 U/L 182 U/L Aspartate Amino Transf (AST/SGOT) 26 U/L 31 U/L Alanine Aminotransferase (ALT/SGPT) 14 U/L 13 U/L Total Bilirubin 1.0 MG/DL 0.9 MG/DL Sodium Level 137 MEQ/L 136 MEQ/L Potassium Level 3.1 MEQ/L 3.1 MEQ/L Chloride Level 104 MEQ/L 101 MEQ/L Carbon Dioxide Level 21.2 MEQ/L 23.1 MEQ/L Anion Gap 12 MEQ/L 12 MEQ/L Estimat Glomerular Filtration Rate 52 ML/MIN 56 ML/MIN Microbiology Date/Time Source Procedure Growth Status 05/07/17 09:23 Blood Peripheral Aerobic Blood Culture - Preliminary NO GROWTH IN 2 DAYS Resulted 05/07/17 09:23 Blood Peripheral Anaerobic Blood Culture - Preliminary NO GROWTH IN 2 DAYS Resulted 05/07/17 09:23 Blood Peripheral Aerobic Blood Culture - Preliminary NO GROWTH IN 2 DAYS Resulted 05/07/17 09:23 Blood Peripheral Anaerobic Blood Culture - Preliminary NO GROWTH IN 2 DAYS Resulted 05/07/17 14:10 Wound Leg Gram Stain - Final Complete 05/07/17 14:10 Wound Culture - Final Staphylococcus Aureus Group A Beta Strep Complete IMAGING: Lower Extremity MRI 05/11/17 0000 Signed Impressions: Service Date/Time: Thursday, May 11, 2017 17:34 - CONCLUSION: Diffuse tissue swelling and edema. The largest small fluid collection was located medially and was measured at 1.5 x 0.7 cm. Infection is not excluded. There is no evidence of osteomyelitis. Richie Kelly MD Renal Ultrasound 05/08/17 0000 Signed Impressions: Service Date/Time: Monday, May 08, 2017 09:47 - CONCLUSION: Echogenic kidneys raising the possibility of medical renal disease. Clinical correlation is recommended. No hydronephrosis or solid renal mass. Unremarkable urinary bladder. Be Branch MD Lower Extremity CT 05/07/17 0000 Signed Impressions: Service Date/Time: Sunday, May 07, 2017 18:40 - CONCLUSION: 1. Cellulitis of the distal leg and foot especially in the dorsum of the foot. No discrete abscess or CT findings of osteomyelitis. Abdiaziz Guaman MD PHYSICAL EXAMINATION GENERAL: No acute distress. HEENT: No icterus. Oropharynx moist mucosa without lesions. NECK: Supple without adenopathy or swelling. LUNGS: Clear to auscultation. HEART: Regular S1, S2 without murmurs, rubs or gallops. EXTREMITIES: The left leg is less erythematous Distal tibia ulcerated lesion unchanged with purplish discoloration. Broken blister at ankle. The left leg is swollen and very warm and the dorsum of the foot has 2+ edema. SKIN: The patient has a bronze hue to the skin. NEURO: No gross focal findings. PSYCHIATRIC: The patient is calm and cooperative. IMPRESSION 1. Severe cellulitis of the left leg with ulcerative component at the left distal tibia. Showing some improvement. Culture showing staph aureus and group A beta strep. Staph (r) to clinda. MRI shows small fluid collection. No osteo. 2. Leukocytosis. WBC improved. RECOMMENDATIONS 1. Change Ancef to Ceftriaxone for once daily treatment. 2. Avoid vancomycin and other nephrotoxic medications. 3. Okay to do outpatient treatment. Orders written for infusion clinic. [facility]. Wan Bianchi MD May 13, 2017 15:57
--- NOTE | 2017-05-13 16:00 | HHI.FF ---
Infusion Therapy Location of Infusion Therapy: Ambulatory Infusion Therapy Order Patient Information Patient Weight 100 kg Diagnosis: (1) Left leg cellulitis Coded Allergies: No Known Allergies (Unverified , 04/13/17) Administer Medication Ceftriaxone 1 gram IV q 24 hours Stop Treatment: May 20, 2017 Additional Information Venous access: Other Additional Instructions [x] Peripheral flush and dressing changes per protocol [x] Implanted port and central captain/airline pilot: * Implanted port: 10 ml Normal Saline followed by 5 ml Heparin 100 units/ml Heparin flush after each use and monthly to maintain. [] May leave port accessed during therapy. [] May leave peripheral site accessed for duration of therapy. [x] If patient has SOB or respiratory distress, check oxygen saturation. If less than 90% or clinical signs of respiratory distress, administer oxygen at 2 L/min. via nasal cannula and notify physician. [x] Anaphylaxis/Reaction orders: * Stop infusion. * Keep IV line open with saline flush. * Notify physician. * Monitor vital signs every 15 minutes until symptoms resolve. * Check Oxygen saturation; Oxygen at 2 L/min. via nasal cannula if less than 90% or clinical signs of respiratory distress. * Administer diphenhydramine (Benadryl) 25 mg IV STAT, (unless patient has received as pre-med). May repeat once, if necessary. * Solu-Cortef 250 mg IVP over 30-60 seconds, use 100 mg vials for each dissolution. * Epinephrine (1mg/1 ml) 0.3 mg subcutaneously or IVP now with any signs of respiratory distress. * Check with physician for new additional pre-med orders if patient is re- challenged or re-treated. [x] May remove PICC line when treatment complete, after confirming with Physician. [x] If the patient is admitted to the hospital, the ED, or transferred via EVAC , complete transfer form including medication reconciliation order sheet. Laboratory Tests Weekly Labs: [facility] Additional Information Follow up with [place] clinic. Wan Bianchi MD May 13, 2017 16:00
--- NOTE | 2017-05-13 16:00 | HHI.FF ---
Infusion Therapy Location of Infusion Therapy: Ambulatory Infusion Therapy Order Patient Information Patient Weight 100 kg Diagnosis: (1) Left leg cellulitis Coded Allergies: No Known Allergies (Unverified , 04/13/17) Administer Medication Ceftriaxone 1 gram IV q 24 hours Stop Treatment: May 20, 2017 Additional Information Venous access: Other Additional Instructions [x] Peripheral flush and dressing changes per protocol [x] Implanted port and central sort line: * Implanted port: 10 ml Normal Saline followed by 5 ml Heparin 100 units/ml Heparin flush after each use and monthly to maintain. [] May leave port accessed during therapy. [] May leave peripheral site accessed for duration of therapy. [x] If patient has SOB or respiratory distress, check oxygen saturation. If less than 90% or clinical signs of respiratory distress, administer oxygen at 2 L/min. via nasal cannula and notify physician. [x] Anaphylaxis/Reaction orders: * Stop infusion. * Keep IV line open with saline flush. * Notify physician. * Monitor vital signs every 15 minutes until symptoms resolve. * Check Oxygen saturation; Oxygen at 2 L/min. via nasal cannula if less than 90% or clinical signs of respiratory distress. * Administer diphenhydramine (Benadryl) 25 mg IV STAT, (unless patient has received as pre-med). May repeat once, if necessary. * Solu-Cortef 250 mg IVP over 30-60 seconds, use 100 mg vials for each dissolution. * Epinephrine (1mg/1 ml) 0.3 mg subcutaneously or IVP now with any signs of respiratory distress. * Check with physician for new additional pre-med orders if patient is re- challenged or re-treated. [x] May remove PICC line when treatment complete, after confirming with Physician. [x] If the patient is admitted to the hospital, the ED, or transferred via EVAC , complete transfer form including medication reconciliation order sheet. Laboratory Tests Weekly Labs: [facility] Additional Information Follow up with [place] clinic. Wan Bianchi MD May 13, 2017 16:00
--- NOTE | 2017-05-13 16:00 | HHI.FF ---
Infusion Therapy Location of Infusion Therapy: Ambulatory Infusion Therapy Order Patient Information Patient Weight 100 kg Diagnosis: (1) Left leg cellulitis Coded Allergies: No Known Allergies (Unverified , 04/13/17) Administer Medication Ceftriaxone 1 gram IV q 24 hours Stop Treatment: May 20, 2017 Additional Information Venous access: Other Additional Instructions [x] Peripheral flush and dressing changes per protocol [x] Implanted port and central airline dispatcher: * Implanted port: 10 ml Normal Saline followed by 5 ml Heparin 100 units/ml Heparin flush after each use and monthly to maintain. [] May leave port accessed during therapy. [] May leave peripheral site accessed for duration of therapy. [x] If patient has SOB or respiratory distress, check oxygen saturation. If less than 90% or clinical signs of respiratory distress, administer oxygen at 2 L/min. via nasal cannula and notify physician. [x] Anaphylaxis/Reaction orders: * Stop infusion. * Keep IV line open with saline flush. * Notify physician. * Monitor vital signs every 15 minutes until symptoms resolve. * Check Oxygen saturation; Oxygen at 2 L/min. via nasal cannula if less than 90% or clinical signs of respiratory distress. * Administer diphenhydramine (Benadryl) 25 mg IV STAT, (unless patient has received as pre-med). May repeat once, if necessary. * Solu-Cortef 250 mg IVP over 30-60 seconds, use 100 mg vials for each dissolution. * Epinephrine (1mg/1 ml) 0.3 mg subcutaneously or IVP now with any signs of respiratory distress. * Check with physician for new additional pre-med orders if patient is re- challenged or re-treated. [x] May remove PICC line when treatment complete, after confirming with Physician. [x] If the patient is admitted to the hospital, the ED, or transferred via EVAC , complete transfer form including medication reconciliation order sheet. Laboratory Tests Weekly Labs: [facility] Additional Information Follow up with [place] clinic. Wan Bianchi MD May 13, 2017 16:00
[2017-05-14] MEDS: ceFAZolin 2 GM PREMIX 50 ML IV SCH (03:45)
[2017-05-14] MEDS: CLOTRIMAZOLE 1% CREAM 15 GM TOPICAL SCH ×2 (03:45→07:38)
[2017-05-14] MEDS: THIAMINE HCL 100 MG TAB PO SCH (07:37)
[2017-05-14] MEDS: HEPARIN SODIUM - SQ 10,000 UNITS/ML VIAL SQ SCH (07:38)
[2017-05-14] MEDS: POTASSIUM CHLORIDE 20 MEQ CONTROLLED RELEASE TAB PO SCH (07:38)
[2017-05-14] MEDS: ACETAMINOPHEN/HYDROcodone 325 MG/10 MG TAB PO PRN (07:39)
[2017-05-14 08:00] VITALS: BP 124/79; PULSE 62; RESP 16; TEMP 97.6; O2SAT 98
[2017-05-14] MEDS ORDERED: GETGO ROLLING W1 MI1 (09:01)
--- NOTE | 2017-05-14 09:12 | HHI.DCPOC ---
Discharge Care Plan Diagnosis: (1) Left leg cellulitis Goals to Promote Your Health * To prevent worsening of your condition and complications, take your meds, follow up with your doctors, change your wound dressings daily - NON-STICK dressings. Directions to Meet Your Goals Take your medications as prescribed Follow your dietary instruction Follow activity as directed Change dressings DAILY, USE NON-STICK Keep your appointments as scheduled Take your immunizations and boosters as scheduled If your symptoms worsen call your PCP, if no PCP go to Urgent Care Center or Emergency Room Smoking is Dangerous to Your Health. Avoid second hand smoke Call the 24-hour hour crisis hotline for domestic abuse at Columba Boyle MD R1 May 14, 2017 09:12
--- NOTE | 2017-05-14 09:12 | HHI.DCPOC ---
Discharge Care Plan Diagnosis: (1) Left leg cellulitis Goals to Promote Your Health * To prevent worsening of your condition and complications, take your meds, follow up with your doctors, change your wound dressings daily - NON-STICK dressings. Directions to Meet Your Goals Take your medications as prescribed Follow your dietary instruction Follow activity as directed Change dressings DAILY, USE NON-STICK Keep your appointments as scheduled Take your immunizations and boosters as scheduled If your symptoms worsen call your PCP, if no PCP go to Urgent Care Center or Emergency Room Smoking is Dangerous to Your Health. Avoid second hand smoke Call the 24-hour hour crisis hotline for domestic abuse at Columba Boyle MD R1 May 14, 2017 09:12
--- NOTE | 2017-05-14 09:12 | HHI.DCPOC ---
Discharge Care Plan Diagnosis: (1) Left leg cellulitis Goals to Promote Your Health * To prevent worsening of your condition and complications, take your meds, follow up with your doctors, change your wound dressings daily - NON-STICK dressings. Directions to Meet Your Goals Take your medications as prescribed Follow your dietary instruction Follow activity as directed Change dressings DAILY, USE NON-STICK Keep your appointments as scheduled Take your immunizations and boosters as scheduled If your symptoms worsen call your PCP, if no PCP go to Urgent Care Center or Emergency Room Smoking is Dangerous to Your Health. Avoid second hand smoke Call the 24-hour hour crisis hotline for domestic abuse at Columba Boyle MD R1 May 14, 2017 09:12
[2017-05-14] MEDS ORDERED: HYDR-3366 PO (09:23)
[2017-05-14] MEDS ORDERED: VASE1PAD2 TOPICAL (09:23)
[2017-05-14 12:00] VITALS: BP 139/87; PULSE 64; RESP 17; TEMP 96.8; O2SAT 98
[2017-05-14 12:21] LABS: HEMATOCRIT 35.8 % (39.0-51.0); HEMOGLOBIN 12.1 GM/DL (13.0-17.0); MEAN CELL VOLUME 90.4 FL (80.0-100.0); MEAN CORPUSCULAR HEMOGLOBIN 30.6 PG (27.0-34.0); MEAN CORPUSCULAR HGB CONC 33.9 % (32.0-36.0); MEAN PLATELET VOLUME 7.7 FL (7.0-11.0); PLATELET COUNT 382 TH/MM3 (150-450); RED BLOOD COUNT 3.97 MIL/MM3 (4.50-5.90); RED CELL DISTRIBUTION WIDTH 15.2 % (11.6-17.2)
[2017-05-14 12:44] LABS: CHLORIDE 102 MEQ/L (98-107); SODIUM (NA) 135 MEQ/L (136-145)
[2017-05-14 12:49] LABS: ALBUMIN 2.3 GM/DL (3.4-5.0); AST (GOT) 46 U/L (15-37); BICARBONATE 26.4 MEQ/L (21.0-32.0); BLOOD UREA NITROGEN 14 MG/DL (7-18); CALCIUM 8.9 MG/DL (8.5-10.1); CREATININE 1.43 MG/DL (0.60-1.30); GLOMERULAR FILTRATION RATE 51 ML/MIN (>89); GLUCOSE,RANDOM 138 MG/DL (74-106)
[2017-05-14 12:53] LABS: ALKALINE PHOSPHATASE 195 U/L (45-117); ALT (GPT) 16 U/L (12-78); TOTAL BILIRUBIN ADULT 0.8 MG/DL (0.2-1.0); TOTAL PROTEIN 8.1 GM/DL (6.4-8.2)
[2017-05-14] MEDS ORDERED: cefTRIAXone 1,000 MG/NS 100 ML IV SCH ×2 (13:00)
--- NOTE | 2017-05-14 14:28 | HHI.FPPN ---
Subjective Remarks Mr Momin was eager to leave the hospital as he was up walking more and has much less pain in his foot and ankle. He can move his ankle well today. He will have chcf worked out per case management and knows he needs to change his bandage daily. He had an infusion clinic worked out and was to get Rocephin prior to D/C. He has no complaints today Objective Vitals Vital Signs Date Time Temp Pulse Resp B/P (MAP) Pulse Ox O2 Delivery O2 Flow Rate FiO2 05/14/17 12:00 96.8 64 17 139/87 (104) 98 05/14/17 08:00 97.6 62 16 124/79 (94) 98 05/13/17 23:47 97.6 65 18 144/88 (106) 98 05/13/17 20:57 65 146/91 (109) 05/13/17 20:25 97.9 68 18 169/97 (121) 98 05/13/17 16:00 97.2 63 17 160/90 (113) 98 I/O 05/13/17 05/13/17 05/13/17 05/14/17 05/14/17 05/14/17 07:00 15:00 23:00 07:00 15:00 23:00 Intake Total 810 ml 734 ml 830 ml Output Total 1800 ml 855 ml 1800 ml Balance -990 ml -121 ml -970 ml Intake Oral 760 ml 684 ml 780 ml IV Total 50 ml 50 ml 50 ml Output Urine Total 1800 ml 855 ml 1800 ml # Bowel Movements 1 0 Result Diagram: 05/14/17 1152 05/14/17 1152 Objective Remarks GENERAL: This is a pleasant male reclining in bed in no acute distress. HEAD: Atraumatic. Normocephalic. EYES: EOMI. No scleral icterus. No injection or drainage. ENT: Moist mucous membranes. NECK: Trachea midline. Supple. CARDIOVASCULAR: Regular rate and rhythm without murmurs, gallops, or rubs. RESPIRATORY: clear. Breath sounds equal bilaterally. GASTROINTESTINAL: Abdomen soft, non-tender, nondistended. MUSCULOSKELETAL: Improvement in swelling of the left leg, 2 ulcerations noted on the leg. Large healing lesion on left midshin shows 1in. eschar at the center surrounded by granulation tissue. 3 cm healing lesion on the distal medial aspect of the left lower leg evident with granulation tissue and minimal drainage of serosanguineous fluid. Able to move toes of the left lower foot. Not able to flex the ankle completely, slight swelling of the ankle and foot with mild erythema and warmth of the skin. Improved ability to ambulate and move his foot and ankle. SKIN: see above NEUROLOGICAL: Awake and alert. No focal deficits, normal speech. A/P Assessment and Plan Patient is a 56-year-old male with a history of alcohol abuse presented with sepsis due to left lower extremity cellulitis and abscess. Receiving antibiotics , IV fluids, heparin for DVT prophylaxis, [place] for pain control. ID and orthopedic surgery have been consulted. Left leg is nonoperable. We'll continue treatment and plan for discharge. Discharge Planning Patient does not appear to have benefits with the [facility], Patient has benefits for a SNF. CN also contacted VA contact to inquire about VA benefits since it is unclear whether or not patient has benefits. [facility] does not appear to be a viable option since patient is homeless. Will plan for D/C pending clinical improvement and improved mobility. Problem List: (1) Left leg cellulitis ICD Codes: L03.116 - Cellulitis of left lower limb Status: Acute Plan: WBC trended down. Vanc d/c'd due to BRANDON. - ID consulted - IV Ancef Day #6. now on rocephin - Wound cx with heavy growth staph aureus not MRSA, heavy growth group A beta strep - Continue maintenance IVF, can consider D/C ing as he is taking good po and his kidneys improved - PT consulted to perform activity therapy 3x/week (2) Hypokalemia ICD Codes: E87.6 - Hypokalemia Status: Acute Plan: Continue to monitor and replete orally as needed. needs this probably because his kidneys are not completely recovered from his BRANDON. (3) History of alcohol abuse ICD Codes: Z87.898 - Personal history of other specified conditions Status: Chronic Plan: CIWA protocol PO rally pack Symptoms stable counselled about the dangers of excessive drinking (4) Renal failure ICD Codes: N19 - Unspecified kidney failure Status: Acute Plan: S/p Vanc plus CT dye. - will avoid all nephrotoxins. -stopped vanc. on ancef now. - improving daily, BUN/Cr =11/.41 . have been stable unclear of his real baseline (5) Homeless ICD Codes: Z59.0 - Homelessness Status: Chronic Plan: Has insurance, is a [facility] patient. Likely no HHC. Receives a [facility] check. Consulted CM, appreciate all their help in working out chcf and outpt abx (6) FEN Plan: Fluids: NS at maintenance rate initially Electrolytes: continue to monitor w/daily BMP, supplement as needed Nutrition: Regular diet DVT prophylaxis: Heparin 5000 units sq q12h Problem Qualifiers (1) Renal failure: Qualified Codes: N17.9 - Acute kidney failure, unspecified Mónica Peacock MD May 14, 2017 14:28
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
== END 2017-05-14 13:54 | DRG 872 ==
LOC: NEPD 09:01 → NEDA 10:55 → N07B 13:21
PROVIDERS: ADMIT Family Medicine; ATTEND Family Medicine
DX: A41.9 Sepsis, unspecified organism (principal); N17.9 Acute kidney failure, unspecified; E87.1 Hypo-osmolality and hyponatremia; S81.812A Laceration without foreign body, left lower leg, initial encounter; L02.416 Cutaneous abscess of left lower limb; E86.0 Dehydration; E87.6 Hypokalemia; Z59.0 Homelessness; F17.210 Nicotine dependence, cigarettes, uncomplicated; S80.812A Abrasion, left lower leg, initial encounter; S80.811A Abrasion, right lower leg, initial encounter; T36.8X5A Adverse effect of other systemic antibiotics, initial encounter; T50.8X5A Adverse effect of diagnostic agents, initial encounter; F10.20 Alcohol dependence, uncomplicated; B95.61 Methicillin susceptible Staphylococcus aureus infection as the cause of diseases classified elsewhere; B95.0 Streptococcus, group A, as the cause of diseases classified elsewhere; W45.8XXA Other foreign body or object entering through skin, initial encounter; W22.09XA Striking against other stationary object, initial encounter; Y92.828 Other wilderness area as the place of occurrence of the external cause
CPT/HCPCS: 36569; 73701; 73720; 76775; 76937; 80048; 80053; 80202; 83735; 85007; 85025; 85027; 85652; 86403; 87040; 87070; 87147; 87186; 87205; 96365; 96375; A9577; J0690; J0696; J1644; J1650; J1885; J2543; J3370; J3411; J7030; J7040; J7050; Q9967

== ENCOUNTER 2017-11-13 13:13 | Emergency (ER) | payer OTHER ==
[~2017-11-13] VITALS: Ht 172.7 cm; Wt 75.0 kg
[~2017-11-13 13:13] MED LIST: CEFT1INJ2 IV; HYDR-3366 PO
[2017-11-13 13:24] VITALS: BP 141/85; PULSE 104; RESP 20; TEMP 98.5; O2SAT 95
[2017-11-13] MEDS ORDERED: SODIUM CHLORIDE 0.9% FLUSH 10 ML FLUSH IV FLUSH PRN (13:30)
[2017-11-13] MEDS ORDERED: DEXT 5%-NACL 0.9% 1000 ML INJ 1,000 ML IV ONE (13:30)
[2017-11-13] MEDS ORDERED: THIAMINE INJ 100 MG in SODIUM CHLORIDE 0.9% INJ 100 ML IV ONE (13:30)
--- NOTE | 2017-11-13 13:31 | PD ---
HPI Chief Complaint: Alcohol intoxication Time Seen by Provider: 13:22 Travel History International Travel<30 days: No Contact w/Intl Traveler<30days: No History of Present Illness HPI 57-year-old male patient presents to the ER today brought in by EMS, PD had called them because he was found in public place, intoxicated, patient admits he had drank about 816 ounce beers today. He denies any injuries or any other issues. Modifying Factors: None Associated Signs & Symptoms: Alcohol intoxication Risk Factors: History of alcohol use PFSH Past Medical History Blood Disorders: No Cancer: No Cardiovascular Problems: No Endocrine: No Gastrointestinal Disorders: No Genitourinary: No Immune Disorder: No Implanted Vascular Access Dvce: No Musculoskeletal: No Neurologic: Yes Psychiatric: No Reproductive: No Respiratory: No Past Surgical History Neurologic Surgery: Yes (pt states " head sx") Social History Alcohol Use: Yes (A FEW DRINKS PER DAY) Tobacco Use: No (QUIT 06/24 3PPD) Substance Use: No Allergies-Medications (Allergen,Severity, Reaction): Coded Allergies: No Known Allergies (Verified Adverse Reaction, Unknown, 05/19/17) Reported Meds & Prescriptions Reported Meds & Active Scripts Active No Active Prescriptions or Reported Medications Review of Systems ROS Limitations: Intoxication Except as stated in HPI: all other systems reviewed are Neg Physical Exam Narrative GENERAL: Well-developed middle-age male patient currently and mild distress. Awake and oriented 2. Alcohol on breath. SKIN: Focused skin assessment warm/dry. HEAD: Atraumatic. Normocephalic. EYES: Pupils equal and round. No scleral icterus. No injection or drainage. ENT: No nasal bleeding or discharge. Mucous membranes pink and moist. NECK: Trachea midline. No JVD. Supple. CARDIOVASCULAR: Regular rate and rhythm. No murmur appreciated. RESPIRATORY: No accessory muscle use. Clear to auscultation. Breath sounds equal bilaterally. GASTROINTESTINAL: Abdomen soft, non-tender, nondistended. Hepatic and splenic margins not palpable. MUSCULOSKELETAL: No obvious deformities. No clubbing. No cyanosis. No edema. NEUROLOGICAL: Awake and alert. No obvious cranial nerve deficits. Motor grossly within normal limits. Slurred speech. PSYCHIATRIC: Appropriate mood and affect; insight and judgment normal. Data Data Last Documented VS Vital Signs Date Time Temp Pulse Resp B/P (MAP) Pulse Ox O2 Delivery O2 Flow Rate FiO2 11/13/17 13:24 98.5 104 20 141/85 (103) 95 Orders Orders Ammonia (11/13/17 13:23) Complete Blood Count With Diff (11/13/17 13:23) Comprehensive Metabolic Panel (11/13/17 13:23) Blood Glucose (11/13/17 13:23) Ecg Monitoring (11/13/17 13:23) Iv Access Insert/Monitor (11/13/17 13:23) Oximetry (11/13/17 13:23) Sodium Chloride 0.9% Flush (Ns Flush) (11/13/17 13:30) Drug Screen, Random Urine (11/13/17 13:23) Alcohol (Ethanol) (11/13/17 13:23) Thiamine Inj (Thiamine Inj) (11/13/17 13:30) Dext 5%-Nacl 0.9% 1000 Ml Inj (D5w-Ns 10 (11/13/17 13:30) Ed Discharge Order (11/13/17 16:23) Labs Laboratory Tests Test 11/13/17 14:00 White Blood Count 8.2 TH/MM3 Red Blood Count 4.64 MIL/MM3 Hemoglobin 13.0 GM/DL Hematocrit 39.3 % Mean Corpuscular Volume 84.7 FL Mean Corpuscular Hemoglobin 28.1 PG Mean Corpuscular Hemoglobin Concent 33.2 % Red Cell Distribution Width 17.7 % Platelet Count 303 TH/MM3 Mean Platelet Volume 7.5 FL Neutrophils (%) (Auto) 54.8 % Lymphocytes (%) (Auto) 38.5 % Monocytes (%) (Auto) 3.8 % Eosinophils (%) (Auto) 0.6 % Basophils (%) (Auto) 2.3 % Neutrophils # (Auto) 4.5 TH/MM3 Lymphocytes # (Auto) 3.1 TH/MM3 Monocytes # (Auto) 0.3 TH/MM3 Eosinophils # (Auto) 0.0 TH/MM3 Basophils # (Auto) 0.2 TH/MM3 CBC Comment DIFF FINAL Differential Comment Blood Urea Nitrogen 7 MG/DL Creatinine 1.05 MG/DL Random Glucose 94 MG/DL Total Protein 8.3 GM/DL Albumin 3.6 GM/DL Calcium Level 8.6 MG/DL Alkaline Phosphatase 179 U/L Aspartate Amino Transf (AST/SGOT) 76 U/L Alanine Aminotransferase (ALT/SGPT) 43 U/L Total Bilirubin 0.8 MG/DL Sodium Level 146 MEQ/L Potassium Level 4.2 MEQ/L Chloride Level 109 MEQ/L Carbon Dioxide Level 21.2 MEQ/L Anion Gap 16 MEQ/L Estimat Glomerular Filtration Rate 73 ML/MIN Ammonia 26 MCMOL/L Ethyl Alcohol Level 343 MG/DL MDM Medical Decision Making Medical Screen Exam Complete: Yes Emergency Medical Condition: Yes Medical Record Reviewed: Yes Interpretation(s) Laboratory Tests Test 11/13/17 14:00 Red Cell Distribution Width 17.7 % (11.6-17.2) Basophils (%) (Auto) 2.3 % (0.0-2.0) Total Protein 8.3 GM/DL (6.4-8.2) Alkaline Phosphatase 179 U/L (45-117) Aspartate Amino Transf (AST/SGOT) 76 U/L (15-37) Sodium Level 146 MEQ/L (136-145) Chloride Level 109 MEQ/L (98-107) Anion Gap 16 MEQ/L (5-15) Estimat Glomerular Filtration Rate 73 ML/MIN (>89) Ethyl Alcohol Level 343 MG/DL (0-5) Differential Diagnosis Alcohol intoxication Narrative Course Alcohol levels were elevated consistent with history. Patient denies any injuries. Plan would be to let him sleep it off in the ER and released when sober. Patient is observed walking to the bathroom on his own, doing well in the ER and is released. Diagnosis Primary Impression: Acute alcohol intoxication Scripts No Active Prescriptions or Reported Meds Disposition: 01 DISCHARGE HOME Condition: Stable Merlin Campbell MD November 13, 2017 13:31
[2017-11-13 14:25] LABS: AUTOMATED NEUTROPHIL # 4.5 TH/MM3 (1.8-7.7); BASOPHIL # 0.2 TH/MM3 (0-0.2); BASOPHIL % 2.3 % (0.0-2.0); EOSINOPHIL % 0.6 % (0.0-4.0); HEMATOCRIT 39.3 % (39.0-51.0); LYMPH % 38.5 % (9.0-44.0); LYMPHOCYTE # 3.1 TH/MM3 (1.0-4.8); MEAN CELL VOLUME 84.7 FL (80.0-100.0); MEAN CORPUSCULAR HEMOGLOBIN 28.1 PG (27.0-34.0); MEAN CORPUSCULAR HGB CONC 33.2 % (32.0-36.0); MEAN PLATELET VOLUME 7.5 FL (7.0-11.0); MONO % 3.8 % (0.0-8.0); MONOCYTE # 0.3 TH/MM3 (0-0.9); NEUT % 54.8 % (16.0-70.0); PLATELET COUNT 303 TH/MM3 (150-450); RED BLOOD COUNT 4.64 MIL/MM3 (4.50-5.90); RED CELL DISTRIBUTION WIDTH 17.7 % (11.6-17.2); WHITE BLOOD COUNT 8.2 TH/MM3 (4.0-11.0)
[2017-11-13 14:44] LABS: ALT (GPT) 43 U/L (12-78)
[2017-11-13 14:46] LABS: ALBUMIN 3.6 GM/DL (3.4-5.0); AST (GOT) 76 U/L (15-37); BICARBONATE 21.2 MEQ/L (21.0-32.0); BLOOD UREA NITROGEN 7 MG/DL (7-18); CALCIUM 8.6 MG/DL (8.5-10.1); CHLORIDE 109 MEQ/L (98-107); CREATININE 1.05 MG/DL (0.60-1.30); GLOMERULAR FILTRATION RATE 73 ML/MIN (>89); GLUCOSE,RANDOM 94 MG/DL (74-106); SODIUM (NA) 146 MEQ/L (136-145)
[2017-11-13 14:48] LABS: ALKALINE PHOSPHATASE 179 U/L (45-117); TOTAL BILIRUBIN ADULT 0.8 MG/DL (0.2-1.0); TOTAL PROTEIN 8.3 GM/DL (6.4-8.2)
== END 2017-11-13 16:44 | disposition home or self-care (01) ==
LOC: NEPC 13:13
DX: F10.129 Alcohol abuse with intoxication, unspecified (principal); Y90.8 Blood alcohol level of 240 mg/100 ml or more; Z87.891 Personal history of nicotine dependence
CPT/HCPCS: 80053; 80307; 82140; 85025; 96365; 99284; J3411; J7042